=== PATIENT | male | born 1965 | race African-American/Black ===

== ENCOUNTER 2018-02-15 15:05 | Inpatient (IN) | payer OTHER ==
[2018-02-15 16:32] VITALS: BMI 24.2
--- NOTE | 2018-02-15 21:07 | HP ---
COWS - Scale Resting Pulse: 0= [place] 80 or Below Sweatin=Flushed/Facial Moisture Restless Observation: 0= Sits Still Pupil Size: 1= Pupils >than Normal Bone or Joint Aches: 4=Acute Joint/Muscle Pain Runny Nose/ Eye Tearin= None GI Upset > 30mins: 0= None Tremor Observation: 2= Slight Tremor Visible Yawning Observation: 0= None Anxiety or Irritability: 4=Extreme Anxiety Goose Flesh Skin: 0=Smooth Skin COWS Score: 13 CIWA Score - CIWA Score Nausea/Vomitin Muscle Tremors: 3 Anxiety: 2 Agitation: 3 Paroxysmal Sweats: 1-Minimal Palms Moist Orientation: 0-Oriented Tacttile Disturbances: 0-None Auditory Disturbances: 0-None Visual Disturbances: 0-None Headache: 3-Moderate CIWA-Ar Total Score: 15 Admission ROS S - HPI Chief Complaint: Heroin and alcohol withdrawal symptoms Allergies/Adverse Reactions: Allergies Allergy/AdvReac Type Severity Reaction Status Date / Time No Known Allergies Allergy Verified 02/15/18 19:38 History of Present Illness: 52 years old male with a long history of heroin and alcohol withdrawal symptoms is seeking admission to detox. Patientwas in detox 2 years ago at [facility] and reports 2 years of sobriety. Patient has a medical history of Hypertension, depression and anxiety. He denies suicide attempt and suicidal ideation at this time. Patient is on methadone 90mg tablet oral at [facility]ic. LDM is 02/15/2018. Dose is yet to be confirmed by the nurse. Exam Limitations: No Limitations - Ebola screening Have you traveled outside of the country in the last 21 days: No Have you had contact with anyone from an Ebola affected area: No Have you been sick,other than usual withdrawal symptoms: No Do you have a fever: No - Review of Systems Constitutional: Malaise, Night Sweats, Changes in sleep, Weakness EENT: reports: No Symptoms Reported Respiratory: reports: No Symptoms reported Cardiac: reports: No Symptoms Reported GI: reports: Diarrhea (x 2), Nausea, Poor Appetite, Poor Fluid Intake, Abdominal cramping : reports: No Symptoms Reported Musculoskeletal: reports: No Symptoms Reported Integumentary: reports: Dryness, Flushing Neuro: reports: Headache, Tingling, Tremors Endocrine: reports: No Symptoms Reported Hematology: reports: No Symptoms Reported Psychiatric: reports: Orientated x3, Anxious, Disorientated Other Systems: Reviewed and Negative Patient History - Patient Medical History Hx Anemia: No Hx Asthma: No Hx Chronic Obstructive Pulmonary Disease (COPD): No Hx Cancer: No Hx Cardiac Disorders: No Hx Congestive Heart Failure: No Hx Hypertension: Yes (Not on medication) Hx Hypercholesterolemia: No Hx Pacemaker: No HX Cerebrovascular Accident: No Hx Seizures: No Hx Dementia: No Hx Diabetes: No Hx Gastrointestinal Disorders: No Hx Liver Disease: No Hx Genitourinary Disorders: No Hx Sexually Transmitted Disorders: No Hx Renal Disease (ESRD): No Hx Thyroid Disease: No Hx Human Immunodeficiency Virus (HIV): No (Negative 2017) Hx Hepatitis C: No Hx Depression: Yes (Not on medication) Hx Suicide Attempt: No (Denies suicide attempt and suicidal ideation at this time) Hx Bipolar Disorder: No Hx Schizophrenia: No Other Medical History: Anxiety- Not on medication - Patient Surgical History Past Surgical History: No Hx Neurologic Surgery: No Hx Cataract Extraction: No Hx Cardiac Surgery: No Hx Lung Surgery: No Hx Abdominal Surgery: No Hx Appendectomy: No Hx Cholecystectomy: No Hx Genitourinary Surgery: No Hx Section: No Hx Orthopedic Surgery: No Anesthesia Reaction: No - PPD History Previous Implant?: Yes Documented Results: Negative w/o proof Implanted On Prior [facility] Admission?: Yes Date: 02/01/16 Results: 0 MM PPD to be Administered?: Yes - Reproductive History Patient is a Female of Child Bearing Age (11 -55 yrs old): No (Male) - Smoking Cessation Smoking history: Current every day smoker Have you smoked in the past 12 months: Yes Aproximately how many cigarettes per day: 20 Hx Chewing Tobacco Use: No Initiated information on smoking cessation: Yes 'Breaking Loose' booklet given: 02/15/18 - Substance & Tx. History Hx Alcohol Use: Yes Hx Substance Use: Yes Substance Use Type: Alcohol, Cocaine, Opiates Hx Substance Use Treatment: Yes ([facility] 2015) - Substances Abused Alcohol Route: Oral Frequency: Daily Amount used: 1 PINT Age of first use: 14 Date of Last Use: 02/15/18 Crack Route: Smoking Frequency: Daily Amount used: 8 BAGS Age of first use: 23 Date of Last Use: 02/15/18 Heroin Route: SNIFF Frequency: Daily Amount used: 2-3 BAGS Age of first use: 26 Date of Last Use: 02/15/18 Family Disease History - Family Disease History Family History: Denies Admission Physical Exam [facility] - Vital Signs Vital Signs: Vital Signs - 24 hr 02/15/18 16:29 Temperature 97.5 F L Pulse Rate 75 Respiratory 20 Rate Blood Pressure 138/90 - Physical General Appearance: Yes: Moderate Distress, Irritable, Sweating, Anxious HEENTM: Yes: EOMI, Normal ENT Inspection, Normocephalic, Normal Voice, MARINE, Pharynx Normal Respiratory: Yes: Lungs Clear, Normal Breath Sounds, No Respiratory Distress Neck: Yes: Thyroid enlarged Breast: Yes: Breast Exam Deferred Cardiology: Yes: Regular Rhythm, Regular Rate, S1, S2 Abdominal: Yes: Normal Bowel Sounds, Soft Genitourinary: Yes: Within Normal Limits Back: Yes: Normal Inspection Musculoskeletal: Yes: Within Normal Limits Extremities: Yes: Tremors Neurological: Yes: Alert, Normal Mood/Affect Integumentary: Yes: Dry - Diagnostic (1) Anxiety Current Visit: Yes Status: Chronic (2) Depression Current Visit: Yes Status: Chronic Qualifiers: Depression Type: unspecified Qualified Code(s): F32.9 - Major depressive disorder, single episode, unspecified (3) Alcohol dependence with uncomplicated withdrawal Current Visit: Yes Status: Chronic (4) Cocaine dependence Current Visit: Yes Status: Chronic Qualifiers: Substance use status: uncomplicated Qualified Code(s): F14.20 - Cocaine dependence, uncomplicated (5) Nicotine dependence Current Visit: Yes Status: Chronic Qualifiers: Nicotine product type: cigarettes Substance use status: uncomplicated Qualified Code(s): F17.210 - Nicotine dependence, cigarettes, uncomplicated (6) Opioid dependence with withdrawal Current Visit: Yes Status: Chronic Cleared for Admission [facility] - Detox or Rehab [facility] Level of Care: Medically Managed Detox Regimen/Protocol: Librium [facility] Breath Alcohol Content Breath Alcohol Content: 0 Urine Drug Screen - Results Drug Screen Negative: No Urine Drug Screen Results: SIVA-Cocaine, OPI-Opiates, BZO-Benzodiazepines, MTD- Methadone
[2018-02-15] MEDS ORDERED: P-EPHED 60MG/TRIPROLIDI 2.5MG TABLET PO PRN (21:15)
[2018-02-15] MEDS ORDERED: MAGNESIUM CITRATE 300 ML BOTTLE PO PRN (21:15)
[2018-02-15] MEDS ORDERED: IBUPROFEN 400 MG TABLET (FP) PO PRN (21:15)
[2018-02-15] MEDS ORDERED: ACETAMINOPHEN 325 MG TABLET (FP) PO PRN (21:15)
[2018-02-15] MEDS ORDERED: guaiFENesin/D-METHORPHAN HB 10 ML UNIT-DOSE CUPS PO PRN (21:15)
[2018-02-15] MEDS ORDERED: MENTHOL/PHENOL 1 EACH UD MM PRN (21:15)
[2018-02-15] MEDS ORDERED: MAGNESIUM HYDROX 2400MG/30ML ORAL SUSPENSION 30 ML CUP PO PRN (21:15)
[2018-02-15] MEDS ORDERED: chlordiazePOXIDE HCL 25 MG CAPSULE PO PRN (21:15)
[2018-02-15] MEDS ORDERED: MAG HYDROX/AL HYDROX/SIMETH 30 ML UNIT-DOSE CUP PO PRN (21:15)
[2018-02-15] MEDS ORDERED: LOPERAMIDE HCL 2 MG CAPSULE PO PRN (21:15)
[2018-02-15] MEDS ORDERED: MELATONIN 5 MG TABLETS PO PRN (22:00)
[2018-02-15] MEDS: chlordiazePOXIDE HCL 25 MG CAPSULE PO SCH (22:30)
[2018-02-15] MEDS: THIAMINE HCL 100 MG TABLET (FP) PO SCH (22:30)
[2018-02-16 01:08] LABS: URINE APPEARANCE CLEAR; URINE BILIRUBIN NEGATIVE (<2.0 mg/dL); URINE BLOOD NEGATIVE (NEGATIVE); URINE COLOR YELLOW; URINE GLUCOSE (UA) NEGATIVE (NEGATIVE); URINE KETONE NEGATIVE (NEGATIVE); URINE LEUK ESTERASE NEGATIVE (NEGATIVE); URINE NITRITE NEGATIVE (NEGATIVE); URINE PROTEIN NEGATIVE (NEGATIVE)
[2018-02-16] MEDS: chlordiazePOXIDE HCL 25 MG CAPSULE PO SCH ×4 (05:34→22:25)
[2018-02-16] MEDS ORDERED: METHADONE HCL 10 MG TABLET PO SCH (09:00)
--- NOTE | 2018-02-16 09:14 | CONSULT ---
[facility] Psychiatric Consult - Data Date of interview: 02/16/18 Admission source: [facility] Identifying data: Patient is a 52 year old single male, father of one, unemployed, homeless, and not receiving financial assistance. This is one of multiple admissions for patient. Pt. admitted to for alcohol, cocaine, and opiate dependence. Substance Abuse History: - Smoking Cessation. Smoking history: Current every day smoker. Have you smoked in the past 12 months: Yes. Aproximately how many cigarettes per day: 20. Hx Chewing Tobacco Use: No. Initiated information on smoking cessation: Yes. 'Breaking Loose' booklet given: 02/15/18. - Substance & Tx. History. Hx Alcohol Use: Yes. Hx Substance Use: Yes. Substance Use Type : Alcohol, Cocaine, Opiates. Hx Substance Use Treatment: Yes ([facility] 2015). - Substances Abused. Alcohol. Route: Oral. Frequency: Daily. Amount used: 1 PINT. Age of first use: 14. Date of Last Use: 02/15/18. Crack. Route: Smoking. Frequency: Daily. Amount used: 8 BAGS. Age of first use: 23. Date of Last Use: 02/15/18. Heroin. Route: SNIFF. Frequency: Daily. Amount used: 2-3 BAGS. Age of first use: 26. Date of Last Use: 02/15/18 Medical History: hypertension. Psychiatric History: Patient denies h/o psychiatric hospitalizations, outpatient care, and suicide attempt. Mental Status Exam - Mental Status Exam Alert and Oriented to: Time, Place, Person Cognitive Function: Good Patient Appearance: Unkempt Mood: Withdrawn Affect: Mood Congruent Patient Behavior: Fatigued, Guarded Speech Pattern: Slurred Voice Loudness: Moderately Soft/Quiet Thought Process: Goal Oriented Hallucinations: Denies Suicidal Ideation: Denies Homicidal Ideation: Denies Insight/Judgement: Poor Sleep: Fair Appetite: Fair Muscle strength/Tone: Normal Gait/Station: Other (Did not observe patient's gait.) Psychiatric Findings - Problem List ([place] 1, 2,3) (1) Alcohol dependence with uncomplicated withdrawal Current Visit: Yes Status: Acute (2) Cocaine dependence Current Visit: Yes Status: Chronic Qualifiers: Substance use status: uncomplicated Qualified Code(s): F14.20 - Cocaine dependence, uncomplicated (3) Nicotine dependence Current Visit: Yes Status: Chronic Qualifiers: Nicotine product type: cigarettes Substance use status: uncomplicated Qualified Code(s): F17.210 - Nicotine dependence, cigarettes, uncomplicated (4) Opioid dependence with withdrawal Current Visit: Yes Status: Acute (5) Substance induced mood disorder Current Visit: Yes Status: Acute - Initial Treatment Plan Initial Treatment Plan: Psychoeducation provided. Detoxification provided. Observation.
[2018-02-16] MEDS ORDERED: METHADONE HCL 10 MG TABLET ONE (09:56)
[2018-02-16] MEDS ORDERED: METHADONE HCL 40 MG DISPERSABLE TABLET ONE (09:56)
[2018-02-16 10:07] LABS: HEMATOCRIT 35.4 % (35.4-49); HEMOGLOBIN 11.8 GM/dL (11.7-16.9); MCH 27.8 pg (25.7-33.7); MCHC 33.4 g/dl (32.0-35.9); MEAN CELL VOLUME 83.1 fl (80-96); MEAN PLT VOLUME 9.4 fl (7.5-11.1); PLATELET COUNT 231 K/MM3 (134-434); RBC 4.26 M/mm3 (4.00-5.60); RDW 16.1 % (11.9-15.9); WHITE BLOOD COUNT 3.8 K/mm3 (4.0-10.0)
[2018-02-16] MEDS: METHADONE 80 MG, METHADONE 10 MG PO SCH (10:23)
[2018-02-16] MEDS: PRENATAL VITAMINS W/ FOLIC ACID TABLET (FP) PO SCH (10:23)
[2018-02-16 10:24] LABS: BLOOD UREA NITROGEN 15 mg/dL (7-18)
[2018-02-16] MEDS: NICOTINE POLACRILEX 2 MG GUM BUC PRN (10:24)
[2018-02-16] MEDS: NICOTINE 14 MG/24 HOURS TOPICAL PATCH TD SCH (10:24)
[2018-02-16 10:43] LABS: ALBUMIN 2.9 g/dl (3.4-5.0); ALK PHOS 65 U/L (45-117); ANION GAP 5 (8-16); BILIRUBIN,TOTAL 0.2 mg/dL (0.2-1.0); CALCIUM 7.9 mg/dL (8.5-10.1); CHLORIDE 106 mmol/L (98-107); CO2 30 mmol/L (21-32); CREATININE 0.9 mg/dL (0.7-1.3); GLUCOSE,RANDOM 77 mg/dL (74-106); POTASSIUM 4.1 mmol/L (3.5-5.1); SGOT/AST 20 U/L (15-37); SGPT/ALT 22 U/L (12-78); SODIUM 141 mmol/L (136-145); TOT PROT 6.2 g/dl (6.4-8.2)
--- NOTE | 2018-02-16 12:18 | PN ---
[facility] CIWA - CIWA Score Nausea/Vomitin-No Nausea/No Vomiting Muscle Tremors: None Anxiety: 4-Mod. Anxious/Guarded Agitation: 3 Paroxysmal Sweats: 3 Orientation: 2-Disoriented Date<2 days Tacttile Disturbances: 2-Mild Itch/Numbness/Burn Auditory Disturbances: 3-Moderate Harsh/Frighten Visual Disturbances: 0-None Headache: 0-None Present CIWA-Ar Total Score: 17 BHS COWS - Scale Resting Pulse: 0= [place] 80 or Below Sweatin= Chills/Flushing Restless Observation: 1= Difficult to Sit Still Pupil Size: 0= Normal to Room Light Bone or Joint Aches: 0= None Runny Nose/ Eye Tearin= Runny Nose/Eyes GI Upset > 30mins: 0= None Tremor Observation of Outstretched Hands: 0= None Yawning Observation: 2= >3x During Session Anxiety or Irritability: 2=Irritable/Anxious Goose Flesh Skin: 3=Piloerection COWS Score: 11 S Progress Note (SOAP) Subjective: Sweating, Anxious, Interrupted Sleep, Fatigue. Objective: PATIENT A & O X 2 (UNCERTAIN ABOUT CURRENT DAY / DATE). NO ACUTE DISTRESS. PATIENT DENIES CHEST PAIN. PATIENT DENIES ANY KNOWN HISTORY OF CARDIAC DISEASE OR PREVIOUS ECG ABNORMALITY. 02/16/18 12:19 Vital Signs Temperature 96.8 F L 02/16/18 09:35 Pulse Rate 73 02/16/18 09:35 Respiratory Rate 18 02/16/18 09:35 Blood Pressure 132/76 02/16/18 09:35 O2 Sat by Pulse Oximetry (%) Laboratory Tests 02/15/18 02/16/18 02/16/18 22:28 07:00 07:00 WBC 3.8 L RBC 4.26 Hgb 11.8 Hct 35.4 MCV 83.1 MCH 27.8 MCHC 33.4 RDW 16.1 H Plt Count 231 MPV 9.4 Sodium 141 Potassium 4.1 Chloride 106 Carbon Dioxide 30 Anion Gap 5 L BUN 15 D Creatinine 0.9 Creat Clearance w eGFR > 60 Random Glucose 77 D Calcium 7.9 L Total Bilirubin 0.2 AST 20 D ALT 22 D Alkaline Phosphatase 65 Total Protein 6.2 L Albumin 2.9 L Urine Color Yellow Urine Appearance Clear Urine pH 7.0 D Ur Specific [place] 1.023 Urine Protein Negative Urine Glucose (UA) Negative Urine Ketones Negative Urine Blood Negative Urine Nitrite Negative Urine Bilirubin Negative Urine Urobilinogen 2.0 Ur Leukocyte Esterase Negative LABS NOTED. RPR RESULT PENDING. 02/16/18 12:21 02/16/18 12:21 Assessment: 02/16/18 12:20 WITHDRAWAL SYMPTOMS. Plan: CONTINUE DETOX.
--- NOTE | 2018-02-16 13:33 | EKG ---
Test Reason : Blood Pressure : / mmHG Vent. Rate : 053 BPM Atrial Rate : 053 BPM P-R Int : 154 ms QRS Dur : 072 ms QT Int : 428 ms P-R-T Axes : 027 -54 030 degrees QTc Int : 401 ms SINUS BRADYCARDIA LEFT AXIS DEVIATION ABNORMAL ECG WHEN COMPARED WITH ECG OF 15-FEB-2018 22:41, NO SIGNIFICANT CHANGE WAS FOUND Confirmed by ABUNDIO CASTELLANOS MD ([id number]) on 02/16/2018 1:33:23 PM Referred By: Confirmed By:ABUNDIO CASTELLANOS MD
--- NOTE | 2018-02-16 13:34 | EKG ---
Test Reason : Blood Pressure : / mmHG Vent. Rate : 051 BPM Atrial Rate : 051 BPM P-R Int : 152 ms QRS Dur : 080 ms QT Int : 464 ms P-R-T Axes : 047 -55 017 degrees QTc Int : 427 ms SINUS BRADYCARDIA LEFT AXIS DEVIATION ABNORMAL ECG NO PREVIOUS ECGS AVAILABLE Confirmed by ABUNDIO CASTELLANOS MD ([id number]) on 02/16/2018 1:34:10 PM Referred By: Confirmed By:ABUNDIO CASTELLANOS MD
[2018-02-16] MEDS: THIAMINE HCL 100 MG TABLET (FP) PO SCH (22:25)
[2018-02-17] MEDS ORDERED: METHADONE HCL 10 MG TABLET ONE (04:34)
[2018-02-17] MEDS ORDERED: METHADONE HCL 40 MG DISPERSABLE TABLET ONE (04:35)
[2018-02-17] MEDS: METHADONE 80 MG, METHADONE 10 MG PO SCH (06:31)
[2018-02-17] MEDS: chlordiazePOXIDE HCL 25 MG CAPSULE PO SCH ×3 (06:31→17:41)
[2018-02-17] MEDS: NICOTINE 14 MG/24 HOURS TOPICAL PATCH TD SCH (10:18)
[2018-02-17] MEDS: NICOTINE POLACRILEX 2 MG GUM BUC PRN (10:18)
[2018-02-17] MEDS: PRENATAL VITAMINS W/ FOLIC ACID TABLET (FP) PO SCH (10:18)
--- NOTE | 2018-02-17 12:30 | PN ---
[facility] CIWA - CIWA Score Nausea/Vomitin-No Nausea/No Vomiting Muscle Tremors: 3 Anxiety: 0-No Anxiety, at Ease Agitation: 2 Paroxysmal Sweats: 3 Orientation: 0-Oriented Tacttile Disturbances: 2-Mild Itch/Numbness/Burn Auditory Disturbances: 2-Mild Harshness/Frighten Visual Disturbances: 2-Mild Sensitivity Headache: 0-None Present CIWA-Ar Total Score: 14 BHS COWS - Scale Resting Pulse: 0= [place] 80 or Below Sweatin= Chills/Flushing Restless Observation: 1= Difficult to Sit Still Pupil Size: 0= Normal to Room Light Bone or Joint Aches: 0= None Runny Nose/ Eye Tearin= Runny Nose/Eyes GI Upset > 30mins: 2= Nausea/Diarrhea Tremor Observation of Outstretched Hands: 2= Slight Tremor Visible Yawning Observation: 1= 1-2x During Session Anxiety or Irritability: 2=Irritable/Anxious Goose Flesh Skin: 3=Piloerection COWS Score: 14 S Progress Note (SOAP) Subjective: Tremors, Sweating, H/A, Stomach Cramping, Diarrhea. Objective: PATIENT A & O X 3, OBSERVED AMBULATING ON UNIT. NO ACUTE DISTRESS. 02/17/18 12:28 Vital Signs Temperature 96.4 F L 02/17/18 09:04 Pulse Rate 68 02/17/18 09:04 Respiratory Rate 18 02/17/18 09:04 Blood Pressure 125/81 02/17/18 09:04 O2 Sat by Pulse Oximetry (%) Laboratory Tests 02/15/18 02/16/18 02/16/18 22:28 07:00 07:00 WBC 3.8 L RBC 4.26 Hgb 11.8 Hct 35.4 MCV 83.1 MCH 27.8 MCHC 33.4 RDW 16.1 H Plt Count 231 MPV 9.4 Sodium 141 Potassium 4.1 Chloride 106 Carbon Dioxide 30 Anion Gap 5 L BUN 15 D Creatinine 0.9 Creat Clearance w eGFR > 60 Random Glucose 77 D Calcium 7.9 L Total Bilirubin 0.2 AST 20 D ALT 22 D Alkaline Phosphatase 65 Total Protein 6.2 L Albumin 2.9 L Urine Color Yellow Urine Appearance Clear Urine pH 7.0 D Ur Specific [place] 1.023 Urine Protein Negative Urine Glucose (UA) Negative Urine Ketones Negative Urine Blood Negative Urine Nitrite Negative Urine Bilirubin Negative Urine Urobilinogen 2.0 Ur Leukocyte Esterase Negative RPR Titer 02/16/18 07:00 WBC RBC Hgb Hct MCV MCH MCHC RDW Plt Count MPV Sodium Potassium Chloride Carbon Dioxide Anion Gap BUN Creatinine Creat Clearance w eGFR Random Glucose Calcium Total Bilirubin AST ALT Alkaline Phosphatase Total Protein Albumin Urine Color Urine Appearance Urine pH Ur Specific [place] Urine Protein Urine Glucose (UA) Urine Ketones Urine Blood Urine Nitrite Urine Bilirubin Urine Urobilinogen Ur Leukocyte Esterase RPR Titer Nonreactive LABS NOTED. Assessment: 02/17/18 12:29 WITHDRAWAL SYMPTOMS. Plan: CONTINUE DETOX.
[2018-02-17] MEDS: THIAMINE HCL 100 MG TABLET (FP) PO SCH (22:24)
[2018-02-17] MEDS: chlordiazePOXIDE 5 MG CAPSULE PO SCH (22:24)
[2018-02-18] MEDS ORDERED: METHADONE HCL 40 MG DISPERSABLE TABLET ONE (03:57)
[2018-02-18] MEDS ORDERED: METHADONE HCL 10 MG TABLET ONE (03:57)
[2018-02-18] MEDS: chlordiazePOXIDE 5 MG CAPSULE PO SCH ×3 (05:27→17:18)
[2018-02-18] MEDS: METHADONE 80 MG, METHADONE 10 MG PO SCH (05:27)
[2018-02-18] MEDS: NICOTINE 14 MG/24 HOURS TOPICAL PATCH TD SCH (10:11)
[2018-02-18] MEDS: NICOTINE POLACRILEX 2 MG GUM BUC PRN (10:11)
[2018-02-18] MEDS: PRENATAL VITAMINS W/ FOLIC ACID TABLET (FP) PO SCH (10:11)
--- NOTE | 2018-02-18 14:33 | PN ---
BHS Progress Note (SOAP) Subjective: Sweating, H/A, Anxious, Body Aches, Diarrhea, Tremors,. Objective: PATIENT A & O X 3, OBSERVED AMBULATING ON UNIT. NO ACUTE DISTRESS. 02/18/18 14:29 Vital Signs Temperature 97.5 F L 02/18/18 13:53 Pulse Rate 60 02/18/18 13:53 Respiratory Rate 16 02/18/18 13:53 Blood Pressure 129/63 02/18/18 13:53 O2 Sat by Pulse Oximetry (%) Laboratory Tests 02/15/18 02/16/18 02/16/18 22:28 07:00 07:00 WBC 3.8 L RBC 4.26 Hgb 11.8 Hct 35.4 MCV 83.1 MCH 27.8 MCHC 33.4 RDW 16.1 H Plt Count 231 MPV 9.4 Sodium 141 Potassium 4.1 Chloride 106 Carbon Dioxide 30 Anion Gap 5 L BUN 15 D Creatinine 0.9 Creat Clearance w eGFR > 60 Random Glucose 77 D Calcium 7.9 L Total Bilirubin 0.2 AST 20 D ALT 22 D Alkaline Phosphatase 65 Total Protein 6.2 L Albumin 2.9 L Urine Color Yellow Urine Appearance Clear Urine pH 7.0 D Ur Specific [place] 1.023 Urine Protein Negative Urine Glucose (UA) Negative Urine Ketones Negative Urine Blood Negative Urine Nitrite Negative Urine Bilirubin Negative Urine Urobilinogen 2.0 Ur Leukocyte Esterase Negative RPR Titer 02/16/18 07:00 WBC RBC Hgb Hct MCV MCH MCHC RDW Plt Count MPV Sodium Potassium Chloride Carbon Dioxide Anion Gap BUN Creatinine Creat Clearance w eGFR Random Glucose Calcium Total Bilirubin AST ALT Alkaline Phosphatase Total Protein Albumin Urine Color Urine Appearance Urine pH Ur Specific [place] Urine Protein Urine Glucose (UA) Urine Ketones Urine Blood Urine Nitrite Urine Bilirubin Urine Urobilinogen Ur Leukocyte Esterase RPR Titer Nonreactive LABS NOTED. Assessment: 02/18/18 14:30 WITHDRAWAL SYMPTOMS. Plan: CONTINUE DETOX. INCREASE DAILY PO FLUID INTAKE. PRN IMMODIUM FOR DIARRHEA. PATIENT SCHEDULED FOR D/C TOMORROW.
--- NOTE | 2018-02-18 15:19 | PN ---
Psychiatric Progress Note Vital Signs: Vital Signs Period Temp Pulse Resp BP Sys/Ashley Pulse Ox Last 24 Hr 97.0 F-98.5 F 60-78 16-18 105-129/60-71 Date of Session: 02/18/18 Chief Complaint:: None offered. HPI: Patient is approached by this typewriter repairer for psychiatric follow up (as requested by medical nurse practitioner).Mr Spencer declines interview." I am fine.I have no issue to discuss with a psychiatrist." Examination waived.Nursing stafff is aware. Current Medications: Active Medications Generic Name Dose Route Start Last Admin Trade Name Freq PRN Reason Stop Dose Admin Acetaminophen 650 mg 02/15/18 21:15 Tylenol - PO Q4H PRN FEVER Al Hydroxide/Mg Hydroxide 30 ml 02/15/18 21:15 Mylanta Oral Suspension - PO Q6H PRN DYSPEPSIA Chlordiazepoxide HCl 15 mg 02/17/18 23:00 02/18/18 10:11 Librium - PO 02/18/18 17:01 15 mg [id number] EPIFANIO Administration Chlordiazepoxide HCl 25 mg 02/15/18 21:15 Librium - PO 02/18/18 21:14 Q4H PRN WITHDRAWAL(CONT SUBST) Chlordiazepoxide HCl 10 mg 02/18/18 23:00 Librium - PO 02/19/18 17:01 [id number] EPIFANIO Eucalyptus/Menthol/Phenol/Sorbitol 1 each 02/15/18 21:15 Cepastat Lozenge - MM Q4H PRN SORE THROAT Guaifenesin 10 ml 02/15/18 21:15 Robitussin Dm - PO Q6H PRN COUGH Ibuprofen 400 mg 02/15/18 21:15 Motrin - PO Q6H PRN PAIN LEVEL 4-6 Loperamide HCl 4 mg 02/15/18 21:15 Imodium - PO Q6H PRN DIARRHEA Magnesium Citrate 300 ml 02/15/18 21:15 Citroma - PO Q48H PRN CONSTIPATION Magnesium Hydroxide 30 ml 02/15/18 21:15 Milk Of Magnesia - PO DAILY PRN CONSTIPATION Melatonin 5 mg 02/15/18 22:00 Melatonin PO HS PRN INSOMNIA Methadone HCl 80 mg/ Methadone 90 mg 02/16/18 09:30 02/18/18 05:27 HCl 10 mg PO 02/23/18 09:29 90 mg DAILY@0600 EPIFANIO Administration Nicotine 14 mg 02/16/18 10:00 02/18/18 10:11 Nicoderm Patch - TD Not Given DAILY EPIFANIO Nicotine Polacrilex 2 mg 02/15/18 21:15 02/18/18 10:11 Nicorette Gum - BUC 2 mg Q2H PRN Administration NICOTINE REPLACEMENT RX Multivit/Folic Acid/Iron 1 tab 02/16/18 10:00 02/18/18 10:11 Vitamins (Sjr) - PO 1 tab DAILY EPIFANIO Administration Pseudoephedrine/Triprolidine 1 combo 02/15/18 21:15 Actifed - PO TID PRN NASAL CONGESTION Thiamine HCl 100 mg 02/15/18 22:00 02/17/18 22:24 Vitamin B1 - PO 100 mg HS EPIFANIO Administration
[2018-02-18] MEDS: chlordiazePOXIDE HCL 10 MG CAPSULE PO SCH (22:10)
[2018-02-18] MEDS: THIAMINE HCL 100 MG TABLET (FP) PO SCH (22:10)
[2018-02-19] MEDS ORDERED: METHADONE HCL 40 MG DISPERSABLE TABLET ONE (04:52)
[2018-02-19] MEDS ORDERED: METHADONE HCL 10 MG TABLET ONE (04:52)
[2018-02-19] MEDS: chlordiazePOXIDE HCL 10 MG CAPSULE PO SCH (05:20)
[2018-02-19] MEDS: METHADONE 80 MG, METHADONE 10 MG PO SCH (05:20)
[2018-02-19] MEDS: NICOTINE 14 MG/24 HOURS TOPICAL PATCH TD SCH (09:19)
[2018-02-19] MEDS: PRENATAL VITAMINS W/ FOLIC ACID TABLET (FP) PO SCH (09:19)
[2018-02-19 09:31] VITALS: BP 126/68; PULSE 84; TEMP 95.6
== END 2018-02-19 09:55 | disposition home or self-care (01) | DRG 773 ==
LOC: YASAS 15:05 → Y3N 20:33
PROVIDERS: ADMIT Internal Medicine; ATTEND Internal Medicine
PROC: HZ2ZZZZ Detoxification Services for Substance Abuse Treatment (ICD-10-PCS; principal; 2018-02-15)
DX: F11.23 Opioid dependence with withdrawal (principal); F10.230 Alcohol dependence with withdrawal, uncomplicated; F14.20 Cocaine dependence, uncomplicated; F17.210 Nicotine dependence, cigarettes, uncomplicated; F41.9 Anxiety disorder, unspecified; F32.9 Major depressive disorder, single episode, unspecified; F19.24 Other psychoactive substance dependence with psychoactive substance-induced mood disorder; I10 Essential (primary) hypertension
CPT/HCPCS: 36415; 80053; 81003; 85027; 86593; 93005; 93010

== ENCOUNTER 2019-07-09 13:47 | Inpatient (IN) | payer OTHER ==
[2019-07-09 14:44] VITALS: BMI 25.4
--- NOTE | 2019-07-09 16:01 | HP ---
COWS - Scale Resting Pulse: 0= [place] 80 or Below Sweatin= No chills or Flushing Restless Observation: 1= Difficult to Sit Still Pupil Size: 0= Normal to Room Light Bone or Joint Aches: 0= None Runny Nose/ Eye Tearin= None GI Upset > 30mins: 0= None Tremor Observation: 2= Slight Tremor Visible Yawning Observation: 1= 1-2x During Session Anxiety or Irritability: 1=Feels Anxious/Irritable CIWA Score Nausea/Vomitin-Mild Nausea/No Vomiting Muscle Tremors: 2 Anxiety: 3 Agitation: 3 Paroxysmal Sweats: No Perspiration Orientation: 1-Uncertain about Date Tacttile Disturbances: 2-Mild Itch/Numbness/Burn Auditory Disturbances: 0-None Visual Disturbances: 0-None Headache: 2-Mild CIWA-Ar Total Score: 14 - Admission Criteria OASAS Guidelines: Admission for Medically Managed Detox: Requires at least one of the followin. CIWA greater than 12 2. Seizures within the past 24 hours 3. Delirium tremens within the past 24 hours 4. Hallucinations within the past 24 hours 5. Acute intervention needed for co occurring medical disorder 6. Acute intervention needed for co occurring psychiatric disorder 7. Severe withdrawal that cannot be handled at a lower level of care (continued vomiting, continued diarrhea, abnormal vital signs) requiring intravenous medication and/or fluids 8. Admitting History and Physical - Smoking History Smoking history: Current every day smoker Have you smoked in the past 12 months: Yes Aproximately how many cigarettes per day: 20 - Alcohol/Substance Use Hx Alcohol Use: Yes Admission [facility] Chief Complaint: Detox from alcohol/heroin Allergies/Adverse Reactions: Allergies Allergy/AdvReac Type Severity Reaction Status Date / Time No Known Allergies Allergy Verified 07/09/19 14:36 History of Present Illness: 53 year old male with no significant medical history here for alcohol/heroin use. In a methadone program getting 50mg daily. Last dose today. Last here in 2018. No legal problems. Reports he was getting medication for L ear pain. Wants to do both detox and rehab. Alcohol: 18 cans of beer daily, last drink was yesterday; many years. Never had withdrawal seizures. Has had blackouts in the past. Normal withdrawal symptoms include being "hyper" and "tremulous". Wants to stop because hes getting tired of it. Heroin: 8-12 bags of heroin a day; sniffs, never injected; never ODd, has a narcan kit, never had seizure from withdrawal Methadone: 50mg daily from program, nothing off the street Cigarettes: 1 pack per day 25 years Surgery: No surgery Living Situation: lives with mom; mom is supportive of him; No children, no Work: former maintenance, construction - Ebola screening Have you traveled outside of the country in the last 21 days: No Have you had contact with anyone from an Ebola affected area: No Do you have a fever: No - Review of Systems Constitutional: Chills EENT: reports: Ear Pain (L sided ear pain) Respiratory: reports: No Symptoms reported Cardiac: reports: Lightheadedness GI: reports: No Symptoms Reported : reports: No Symptoms Reported Musculoskeletal: reports: No Symptoms Reported Integumentary: reports: No Symptoms Reported Neuro: reports: Headache Endocrine: reports: No Symptoms Reported Hematology: reports: No Symptoms Reported Psychiatric: reports: Judgement Intact, Mood/Affect Appropiate, Orientated x3 Patient History - Patient Medical History Hx Anemia: No Hx Asthma: No Hx Chronic Obstructive Pulmonary Disease (COPD): No Hx Cancer: No Hx Cardiac Disorders: No Hx Congestive Heart Failure: No Hx Hypertension: Yes (Not on medication) Hx Hypercholesterolemia: No Hx Pacemaker: No HX Cerebrovascular Accident: No Hx Seizures: No Hx Dementia: No Hx Diabetes: No Hx Gastrointestinal Disorders: No Hx Liver Disease: No Hx Genitourinary Disorders: No Hx Sexually Transmitted Disorders: No Hx Renal Disease (ESRD): No Hx Thyroid Disease: No Hx Human Immunodeficiency Virus (HIV): No (Negative 2018) Hx Hepatitis C: No Hx Depression: Yes (Not on medication) Hx Suicide Attempt: No (Denies suicide attempt and suicidal ideation at this time) Hx Bipolar Disorder: No Hx Schizophrenia: No - Patient Surgical History Past Surgical History: No Hx Neurologic Surgery: No Hx Cataract Extraction: No Hx Cardiac Surgery: No Hx Lung Surgery: No Hx Breast Surgery: No Hx Breast Biopsy: No Hx Abdominal Surgery: No Hx Appendectomy: No Hx Cholecystectomy: No Hx Genitourinary Surgery: No Hx Section: No Hx Orthopedic Surgery: No Anesthesia Reaction: No - PPD History Date: 02/17/18 Results: 0 MM - Smoking Cessation Smoking history: Current every day smoker Have you smoked in the past 12 months: Yes Aproximately how many cigarettes per day: 20 Cigars Per Day: 0 Hx Chewing Tobacco Use: No Initiated information on smoking cessation: Yes 'Breaking Loose' booklet given: 07/09/19 - Substances abused Alcohol Substance route: Oral Frequency: Daily Amount used: 45 8oz can of beer & 3 nips vodka Age of first use: 12 Date of last use: 07/08/19 Heroin Substance route: Inhalation Frequency: Daily Amount used: 2-3 bags Age of first use: 11 Date of last use: 07/09/19 Admission Physical Exam [facility] - Vital Signs Vital Signs: Vital Signs - 24 hr 07/09/19 14:30 Temperature 98.3 F Pulse Rate 70 Respiratory 20 Rate Blood Pressure 133/79 - Physical General Appearance: Yes: No Apparent Distress, Tremorous HEENTM: Yes: Hearing grossly Normal, Normal ENT Inspection, Normocephalic Respiratory: Yes: Chest Non-Tender, Normal Breath Sounds Cardiology: Yes: Regular Rhythm, Regular Rate Abdominal: Yes: Normal Bowel Sounds, Non Tender Musculoskeletal: Yes: full range of Motion, Gait Steady Extremities: Yes: Normal Capillary Refill, Normal Inspection, Normal Range of Motion Neurological: Yes: deputy city clerk II-XII NML intact, Fully Oriented, Motor Strength 5/5, Normal Mood/Affect, Normal Response Integumentary: Yes: Normal Color, Dry, Warm - Diagnostic (1) Alcohol dependence with uncomplicated withdrawal Current Visit: No Status: Acute (2) Opioid dependence with withdrawal Current Visit: No Status: Acute (3) Substance induced mood disorder Current Visit: No Status: Acute (4) Anxiety Current Visit: No Status: Chronic (5) Cocaine dependence Current Visit: No Status: Chronic Qualifiers: Substance use status: uncomplicated Qualified Code(s): F14.20 - Cocaine dependence, uncomplicated Cleared for Admission [facility] - Detox or Rehab [facility] Level of Care: Medically Supervised Breathalyzer - Breathalyzer Breathalyzer: 0 Urine Drug Screen - Test Device Lot number: [id number] Expiration date: 02/16/21 - Control Is test valid?: Yes - Results Drug screen NEGATIVE: No Urine drug screen results: FEN-Fentanyl, MOP-Opiates, MTD-Methadone Inpatient Rehab Admission - Rehab Decision to Admit Inpatient rehab admission?: No
--- NOTE | 2019-07-09 16:21 | PN ---
Teaching Attending Note Name of Resident: Madhu Yu ATTENDING PHYSICIAN STATEMENT I saw and evaluated the patient. I reviewed the resident's note and discussed the case with the resident. I agree with the resident's findings and plan as documented. SUBJECTIVE:53 yo with OUD, on methadone MAT, here for alcohol use- 12 beers/day. OBJECTIVE: Vital Signs - 24 hr 07/09/19 14:30 Temperature 98.3 F Pulse Rate 70 Respiratory 20 Rate Blood Pressure 133/79 alert and oriented ASSESSMENT AND PLAN: Alcohol use disorder- librium detox OUD- continue methadone
[2019-07-09] MEDS ORDERED: MAG HYDROX/AL HYDROX/SIMETH 30 ML UNIT-DOSE CUP PO PRN (16:23)
[2019-07-09] MEDS ORDERED: MENTHOL/PHENOL 1 EACH UD MM PRN (16:23)
[2019-07-09] MEDS ORDERED: ACETAMINOPHEN 325 MG TABLET (FP) PO PRN ×2 (16:23)
[2019-07-09] MEDS ORDERED: hydrOXYzine PAMOATE 25 MG CAPSULE (FP) PO PRN (16:23)
[2019-07-09] MEDS ORDERED: MELATONIN 5 MG TABLETS PO PRN (16:23)
[2019-07-09] MEDS ORDERED: METHOCARBAMOL 500 MG TABLET PO PRN (16:23)
[2019-07-09] MEDS ORDERED: MAGNESIUM CITRATE 300 ML BOTTLE PO PRN (16:23)
[2019-07-09] MEDS ORDERED: MAGNESIUM HYDROX 2400MG/30ML ORAL SUSPENSION 30 ML CUP PO PRN (16:23)
[2019-07-09] MEDS ORDERED: BISMUTH SUBSALICYLATE 524 MG/30 ML UD PO PRN (16:23)
[2019-07-09] MEDS ORDERED: IBUPROFEN 400 MG TABLET (FP) PO PRN (16:23)
[2019-07-09] MEDS ORDERED: chlordiazePOXIDE HCL 10 MG CAPSULE PO PRN (16:23)
[2019-07-09] MEDS: chlordiazePOXIDE HCL 25 MG CAPSULE PO SCH (21:30)
[2019-07-09] MEDS: THIAMINE HCL 100 MG TABLET (FP) PO SCH (22:10)
[2019-07-10] MEDS: chlordiazePOXIDE HCL 25 MG CAPSULE PO SCH ×3 (06:15→21:20)
[2019-07-10] MEDS ORDERED: METHADONE HCL 10 MG TABLET PO ONE (09:08)
[2019-07-10] MEDS ORDERED: METHADONE 40 MG, METHADONE 5 MG PO ONE (09:20)
[2019-07-10] MEDS ORDERED: METHADONE HCL 40 MG DISPERSABLE TABLET ONE (09:47)
[2019-07-10] MEDS ORDERED: METHADONE HCL 5 MG TABLET ONE (09:48)
[2019-07-10] MEDS: PRENATAL VITAMINS W/ FOLIC ACID TABLET (FP) PO SCH (10:27)
--- NOTE | 2019-07-10 11:38 | PN ---
S CIWA - CIWA Score Nausea/Vomitin-Mild Nausea/No Vomiting Muscle Tremors: 2 Anxiety: 2 Agitation: 2 Paroxysmal Sweats: No Perspiration Orientation: 0-Oriented Tacttile Disturbances: 1-Very Mild Itch/Numbness Auditory Disturbances: 0-None Visual Disturbances: 0-None Headache: 2-Mild CIWA-Ar Total Score: 10 BHS Progress Note (SOAP) Subjective: alert,irritable,anxious,interrupted sleep,pain in the body,history of earwax in right ear using ear drop Objective: 07/10/19 11:37 Vital Signs Temperature 98.2 F 07/10/19 09:39 Pulse Rate 71 07/10/19 09:39 Respiratory Rate 18 07/10/19 09:39 Blood Pressure 139/79 07/10/19 09:39 O2 Sat by Pulse Oximetry (%) 07/10/19 11:37 labs pending Assessment: 07/10/19 11:38 withdrawal symptom Plan: continue detox librium regimen,continue methadone maintenance 45 mgs po daily, debrox ear drop right
[2019-07-10 12:07] LABS: HEMATOCRIT 37.6 % (35.4-49); HEMOGLOBIN 12.4 GM/dL (11.7-16.9); MCH 27.9 pg (25.7-33.7); MCHC 32.8 g/dl (32.0-35.9); MEAN CELL VOLUME 85.1 fl (80-96); MEAN PLT VOLUME 9.4 fl (7.5-11.1); PLATELET COUNT 203 K/MM3 (134-434); RBC 4.42 M/mm3 (4.00-5.60); RDW 14.8 % (11.9-15.9); WHITE BLOOD COUNT 3.7 K/mm3 (4.0-10.0)
[2019-07-10 12:22] LABS: ALBUMIN 3.3 g/dl (3.4-5.0); BILIRUBIN,TOTAL 0.4 mg/dL (0.2-1); BLOOD UREA NITROGEN 12.6 mg/dL (7-18); CALCIUM 8.5 mg/dL (8.5-10.1); CREATININE 0.8 mg/dL (0.55-1.3); POTASSIUM 3.9 mmol/L (3.5-5.1); TOT PROT 6.6 g/dl (6.4-8.2)
[2019-07-10] MEDS: CARBAMIDE PEROXIDE 6.5% OTIC 15 ML BOTTLE AD SCH ×2 (13:55→22:47)
[2019-07-10] MEDS: THIAMINE HCL 100 MG TABLET (FP) PO SCH (22:47)
[2019-07-11] MEDS ORDERED: METHADONE HCL 40 MG DISPERSABLE TABLET ONE (04:57)
[2019-07-11] MEDS ORDERED: METHADONE HCL 5 MG TABLET ONE (04:58)
[2019-07-11] MEDS: chlordiazePOXIDE 5 MG CAPSULE PO SCH ×2 (05:47→13:54)
[2019-07-11] MEDS ORDERED: METHADONE HCL 40 MG DISPERSABLE TABLET PO SCH (06:00)
[2019-07-11] MEDS ORDERED: METHADONE 40 MG, METHADONE 5 MG PO SCH (06:00)
[2019-07-11] MEDS: CARBAMIDE PEROXIDE 6.5% OTIC 15 ML BOTTLE AD SCH (10:45)
[2019-07-11] MEDS: PRENATAL VITAMINS W/ FOLIC ACID TABLET (FP) PO SCH (10:45)
--- NOTE | 2019-07-11 11:59 | PN ---
S CIWA - CIWA Score Nausea/Vomitin-Mild Nausea/No Vomiting Muscle Tremors: 1-None Visible, but [place] Anxiety: 2 Agitation: 2 Paroxysmal Sweats: No Perspiration Orientation: 0-Oriented Tacttile Disturbances: 1-Very Mild Itch/Numbness Auditory Disturbances: 0-None Visual Disturbances: 0-None Headache: 2-Mild CIWA-Ar Total Score: 9 BHS Progress Note (SOAP) Subjective: alert,irritable,anxious,interrupted sleep,pain in the body Objective: 07/11/19 11:58 Vital Signs Temperature 97.5 F L 07/11/19 09:11 Pulse Rate 89 07/11/19 09:11 Respiratory Rate 20 07/11/19 09:11 Blood Pressure 122/60 07/11/19 09:11 O2 Sat by Pulse Oximetry (%) Laboratory Last Values WBC 3.7 K/mm3 (4.0-10.0) L 07/10/19 08:40 RBC 4.42 M/mm3 (4.00-5.60) 07/10/19 08:40 Hgb 12.4 GM/dL (11.7-16.9) 07/10/19 08:40 Hct 37.6 % (35.4-49) 07/10/19 08:40 MCV 85.1 fl (80-96) 07/10/19 08:40 MCH 27.9 pg (25.7-33.7) 07/10/19 08:40 MCHC 32.8 g/dl (32.0-35.9) 07/10/19 08:40 RDW 14.8 % (11.9-15.9) 07/10/19 08:40 Plt Count 203 K/MM3 (134-434) 07/10/19 08:40 MPV 9.4 fl (7.5-11.1) 07/10/19 08:40 Sodium 139 mmol/L (136-145) 07/10/19 08:40 Potassium 3.9 mmol/L (3.5-5.1) 07/10/19 08:40 Chloride 102 mmol/L (98-107) 07/10/19 08:40 Carbon Dioxide 31 mmol/L (21-32) 07/10/19 08:40 Anion Gap 6 MMOL/L (8-16) L 07/10/19 08:40 BUN 12.6 mg/dL (7-18) 07/10/19 08:40 Creatinine 0.8 mg/dL (0.55-1.3) 07/10/19 08:40 Est GFR (CKD-EPI)AfAm 117.38 07/10/19 08:40 Est GFR (CKD-EPI)NonAf 101.27 07/10/19 08:40 Random Glucose 79 mg/dL (74-106) 07/10/19 08:40 Calcium 8.5 mg/dL (8.5-10.1) 07/10/19 08:40 Total Bilirubin 0.4 mg/dL (0.2-1) 07/10/19 08:40 AST 17 U/L (15-37) 07/10/19 08:40 ALT 27 U/L (13-61) 07/10/19 08:40 Alkaline Phosphatase 66 U/L (45-117) 07/10/19 08:40 Total Protein 6.6 g/dl (6.4-8.2) 07/10/19 08:40 Albumin 3.3 g/dl (3.4-5.0) L 07/10/19 08:40 RPR Titer Nonreactive (NONREACTIVE) 07/10/19 08:40 Assessment: 07/11/19 11:59 withdrawal symptom Plan: continue detox librium regimen
[2019-07-11 14:09] VITALS: BP 124/62; PULSE 73; TEMP 98.1
[2019-07-12] MEDS ORDERED: chlordiazePOXIDE HCL 10 MG CAPSULE PO PRN
[2019-07-12] MEDS ORDERED: chlordiazePOXIDE HCL 10 MG CAPSULE PO SCH (05:00)
[2019-07-13] MEDS ORDERED: chlordiazePOXIDE HCL 10 MG CAPSULE PO ONE (05:00)
== END 2019-07-11 16:24 | disposition left against medical advice (07) | DRG 770 ==
LOC: YASAS 13:47 → Y6N 16:52
PROVIDERS: ADMIT Allergy & Immunology; ATTEND Allergy & Immunology
PROC: HZ2ZZZZ Detoxification Services for Substance Abuse Treatment (ICD-10-PCS; principal; 2019-07-09)
DX: F11.23 Opioid dependence with withdrawal (principal); F10.230 Alcohol dependence with withdrawal, uncomplicated; F17.210 Nicotine dependence, cigarettes, uncomplicated; F19.24 Other psychoactive substance dependence with psychoactive substance-induced mood disorder; F41.9 Anxiety disorder, unspecified
CPT/HCPCS: 36415; 80053; 85027; 86593

== ENCOUNTER 2019-10-16 17:27 | Inpatient (IN) | payer OTHER ==
[2019-10-16 18:42] VITALS: BMI 32.9
--- NOTE | 2019-10-16 20:13 | HP ---
CIWA Score Nausea/Vomitin Muscle Tremors: 2 Anxiety: 3 Agitation: 2 Paroxysmal Sweats: 2 Orientation: 0-Oriented Tacttile Disturbances: 0-None Auditory Disturbances: 0-None Visual Disturbances: 0-None Headache: 2-Mild CIWA-Ar Total Score: 13 - Admission Criteria OASAS Guidelines: Admission for Medically Managed Detox: Requires at least one of the followin. CIWA greater than 12 2. Seizures within the past 24 hours 3. Delirium tremens within the past 24 hours 4. Hallucinations within the past 24 hours 5. Acute intervention needed for co occurring medical disorder 6. Acute intervention needed for co occurring psychiatric disorder 7. Severe withdrawal that cannot be handled at a lower level of care (continued vomiting, continued diarrhea, abnormal vital signs) requiring intravenous medication and/or fluids 8. Admitting History and Physical - Admission Chief Complaint: "i'm here for alcohol detox". History of Present Illness: A 54year old male with history of alcohol, heroin, and cocaine use disorder who presents here for alcohol detox. Pt gets methadone 70mg po daily at [facility]MTP program. Last dose today, to be verified in AM. Pt was last detox here was on 07/09/19 to . Pt reports that several attempts to remain sober has failed and plans to go to rehab for continued management after completing detox. Pt's EKG is abnormal, denies any chest pain, palpitations, dizziness, or sob. Repeat EKG in AM. History Source: Patient Limitations to Obtaining History: No Limitations - Smoking History Smoking history: Current every day smoker Have you smoked in the past 12 months: Yes Aproximately how many cigarettes per day: 10 - Alcohol/Substance Use Hx Alcohol Use: Yes History of Substance Use: reports: Cocaine, Heroin - Social History Usual Living Arrangement: Yes: Alone, Other (Homeless) Do you think of yourself as: Straight/Heterosexual ADL: Independent History of Recent Travel: No Admission ROS [facility] Allergies/Adverse Reactions: Allergies Allergy/AdvReac Type Severity Reaction Status Date / Time No Known Allergies Allergy Verified 10/16/19 18:28 Exam Limitations: No Limitations - Ebola screening Have you traveled outside of the country in the last 21 days: No Have you had contact with anyone from an Ebola affected area: No Have you been sick,other than usual withdrawal symptoms: No Do you have a fever: No - Review of Systems Constitutional: Chills, Night Sweats EENT: reports: No Symptoms Reported Respiratory: reports: Cough Cardiac: reports: No Symptoms Reported GI: reports: Diarrhea, Nausea : reports: No Symptoms Reported Musculoskeletal: reports: No Symptoms Reported Integumentary: reports: No Symptoms Reported Neuro: reports: Headache, Tremors Endocrine: reports: No Symptoms Reported Hematology: reports: No Symptoms Reported Psychiatric: reports: Mood/Affect Appropiate, Anxious Other Systems: Reviewed and Negative Patient History - Patient Medical History Hx Anemia: No Hx Asthma: No Hx Chronic Obstructive Pulmonary Disease (COPD): No Hx Cancer: No Hx Cardiac Disorders: No Hx Congestive Heart Failure: No Hx Hypertension: No Hx Hypercholesterolemia: No Hx Pacemaker: No HX Cerebrovascular Accident: No Hx Seizures: No Hx Dementia: No Hx Diabetes: No Hx Gastrointestinal Disorders: No Hx Liver Disease: No Hx Genitourinary Disorders: No Hx Sexually Transmitted Disorders: No Hx Renal Disease (ESRD): No Hx Thyroid Disease: No Hx Human Immunodeficiency Virus (HIV): No (Negative 2018) Hx Hepatitis C: No Hx Depression: No Hx Suicide Attempt: No Hx Bipolar Disorder: No Hx Schizophrenia: No - Patient Surgical History Past Surgical History: No Hx Neurologic Surgery: No Hx Cataract Extraction: No Hx Cardiac Surgery: No Hx Lung Surgery: No Hx Breast Surgery: No Hx Breast Biopsy: No Hx Abdominal Surgery: No Hx Appendectomy: No Hx Cholecystectomy: No Hx Genitourinary Surgery: No Hx Section: No Hx Orthopedic Surgery: No Anesthesia Reaction: No - PPD History Previous Implant?: Yes Documented Results: Negative w/proof Date: 07/11/19 Results: 0 MM PPD to be Administered?: No - Smoking Cessation Smoking history: Current every day smoker Have you smoked in the past 12 months: Yes Aproximately how many cigarettes per day: 10 Cigars Per Day: 0 Hx Chewing Tobacco Use: No Initiated information on smoking cessation: Yes 'Breaking Loose' booklet given: 10/16/19 - Substance & Tx. History Hx Alcohol Use: Yes Hx Substance Use: Yes Substance Use Type: Alcohol, Cocaine, Heroin Hx Substance Use Treatment: Yes (On methadone 70mg po daily at [facility]) - Substances abused Alcohol Substance route: Oral Frequency: Daily Amount used: 4 cans of 16oz of beer and 1 pints of vodka Age of first use: 12 Date of last use: 10/15/19 Heroin Substance route: Inhalation Frequency: Daily Amount used: 2 to 3 bags Age of first use: 23 Date of last use: 10/16/19 Crack Substance route: Smoking Frequency: Daily Amount used: 10 bags Age of first use: 19 Date of last use: 10/16/19 Admission Physical Exam [facility] - Vital Signs Vital Signs: Vital Signs - 24 hr 10/16/19 10/16/19 18:28 18:50 Temperature 98.3 F Pulse Rate 69 69 Respiratory 16 16 Rate Blood Pressure 137/76 137/76 - Physical General Appearance: Yes: No Apparent Distress, Tremorous, Irritable, Sweating, Anxious HEENTM: Yes: Hearing grossly Normal, Normocephalic, MARINE, Tm's normal Respiratory: Yes: Chest Non-Tender, Lungs Clear, Normal Breath Sounds, No Respiratory Distress Neck: Yes: No masses,lesions,Nodules Breast: Yes: Within Normal Limits Cardiology: Yes: Regular Rhythm, Regular Rate, S1, S2 Abdominal: Yes: Normal Bowel Sounds, Non Tender, Soft Genitourinary: Yes: Within Normal Limits Back: Yes: Normal Inspection Extremities: Yes: Normal Capillary Refill, Tremors Neurological: Yes: Alert, Motor Strength 5/5, Normal Response Integumentary: Yes: Dry, Warm Lymphatic: Yes: Within Normal Limits Cleared for Admission [facility] - Detox or Rehab [facility] Level of Care: Medically Managed Detox Regimen/Protocol: Librium Claeared for Rehab Admission: No Breathalyzer - Breathalyzer Breathalyzer: 0 Urine Drug Screen - Test Device Lot number: [id number] Expiration date: 04/18/21 - Control Is test valid?: Yes - Results Drug screen NEGATIVE: No Urine drug screen results: SIVA-Cocaine, FEN-Fentanyl, MTD-Methadone, BZO- Benzodiazepines Inpatient Rehab Admission - Rehab Decision to Admit Inpatient rehab admission?: No
[2019-10-16] MEDS ORDERED: MAGNESIUM HYDROX 2400MG/30ML ORAL SUSPENSION 30 ML CUP PO PRN (20:26)
[2019-10-16] MEDS ORDERED: ACETAMINOPHEN 325 MG TABLET (FP) PO PRN ×2 (20:26)
[2019-10-16] MEDS ORDERED: BISMUTH SUBSALICYLATE 524 MG/30 ML UD PO PRN (20:26)
[2019-10-16] MEDS ORDERED: ONDANSETRON *ODT* 4 MG TABLET SL PRN (20:26)
[2019-10-16] MEDS ORDERED: METHOCARBAMOL 500 MG TABLET PO PRN (20:26)
[2019-10-16] MEDS ORDERED: MENTHOL/PHENOL 1 EACH UD MM PRN (20:26)
[2019-10-16] MEDS ORDERED: MAG HYDROX/AL HYDROX/SIMETH 30 ML UNIT-DOSE CUP PO PRN (20:26)
[2019-10-16] MEDS ORDERED: MAGNESIUM CITRATE 300 ML BOTTLE PO PRN (20:26)
[2019-10-16] MEDS ORDERED: IBUPROFEN 400 MG TABLET (FP) PO PRN (20:26)
[2019-10-16] MEDS ORDERED: hydrOXYzine PAMOATE 25 MG CAPSULE (FP) PO PRN (20:26)
[2019-10-16] MEDS ORDERED: chlordiazePOXIDE HCL 10 MG CAPSULE PO PRN (20:30)
[2019-10-16] MEDS: chlordiazePOXIDE HCL 25 MG CAPSULE PO SCH (22:15)
[2019-10-16] MEDS: MELATONIN 5 MG TABLETS PO PRN (22:15)
[2019-10-16] MEDS: THIAMINE HCL 100 MG TABLET (FP) PO SCH (22:15)
[2019-10-16] MEDS: guaiFENesin 200 MG/10 ML 10 ML UNIT-DOSE CUPS PO PRN (22:16)
[2019-10-17] MEDS: chlordiazePOXIDE HCL 25 MG CAPSULE PO SCH ×3 (06:14→21:09)
[2019-10-17] MEDS: AMOX TR/POT CLAV 875MG/125MG TABLETS (FP) PO SCH ×2 (07:30→17:02)
[2019-10-17] MEDS ORDERED: METHADONE HCL 10 MG TABLET PO ONE (08:26)
[2019-10-17] MEDS ORDERED: METHADONE 40 MG, METHADONE 30 MG PO ONE (08:35)
[2019-10-17] MEDS ORDERED: METHADONE HCL 10 MG TABLET ONE (08:51)
[2019-10-17] MEDS ORDERED: METHADONE HCL 40 MG DISPERSABLE TABLET ONE (08:51)
[2019-10-17] MEDS: NICOTINE 14 MG/24 HOURS TOPICAL PATCH TD SCH (09:55)
[2019-10-17] MEDS: PRENATAL VITAMINS W/ FOLIC ACID TABLET (FP) PO SCH (09:55)
[2019-10-17] MEDS: guaiFENesin 200 MG/10 ML 10 ML UNIT-DOSE CUPS PO PRN (09:59)
[2019-10-17] MEDS: NICOTINE POLACRILEX 2 MG GUM BUC PRN (09:59)
[2019-10-17 10:24] LABS: HEMATOCRIT 38.7 % (35.4-49); HEMOGLOBIN 12.8 GM/dL (11.7-16.9); MCH 27.8 pg (25.7-33.7); MEAN CELL VOLUME 84.1 fl (80-96); MEAN PLT VOLUME 9.6 fl (7.5-11.1); PLATELET COUNT 281 K/MM3 (134-434); RDW 15.9 % (11.9-15.9); WHITE BLOOD COUNT 3.4 K/mm3 (4.0-10.0)
[2019-10-17 10:42] LABS: ALBUMIN 3.3 g/dl (3.4-5.0); BILIRUBIN,TOTAL 0.6 mg/dL (0.2-1); BLOOD UREA NITROGEN 8.4 mg/dL (7-18); CALCIUM 8.7 mg/dL (8.5-10.1); POTASSIUM 4.2 mmol/L (3.5-5.1)
--- NOTE | 2019-10-17 11:56 | PN ---
S CIWA - CIWA Score Nausea/Vomitin-No Nausea/No Vomiting Muscle Tremors: 3 Anxiety: 2 Agitation: 3 Paroxysmal Sweats: 2 Orientation: 0-Oriented Tacttile Disturbances: 0-None Auditory Disturbances: 0-None Visual Disturbances: 0-None Headache: 0-None Present CIWA-Ar Total Score: 10 S Progress Note (SOAP) Subjective: sweats shakes irritable agitation Objective: 10/17/19 11:55 Vital Signs Temperature 97.7 F 10/17/19 09:21 Pulse Rate 68 10/17/19 09:21 Respiratory Rate 18 10/17/19 09:21 Blood Pressure 127/74 10/17/19 09:21 O2 Sat by Pulse Oximetry (%) Laboratory Tests 10/17/19 10/17/19 10/17/19 07:30 07:30 07:30 WBC 3.4 L RBC 4.60 Hgb 12.8 Hct 38.7 MCV 84.1 MCH 27.8 MCHC 33.0 RDW 15.9 Plt Count 281 D MPV 9.6 Sodium 137 Potassium 4.2 Chloride 104 Carbon Dioxide 27 Anion Gap 6 L BUN 8.4 Creatinine 1.0 Est GFR (CKD-EPI)AfAm 97.77 Est GFR (CKD-EPI)NonAf 84.35 Random Glucose 110 H Calcium 8.7 Total Bilirubin 0.6 AST 14 L ALT 27 Alkaline Phosphatase 65 Total Protein 7.0 Albumin 3.3 L RPR Titer Nonreactive aaox3 ambulating no acute distress Assessment: 10/17/19 11:56 withdrawals Plan: continue detox increase fluids
--- NOTE | 2019-10-17 15:32 | EKG ---
Test Reason : Blood Pressure : / mmHG Vent. Rate : 059 BPM Atrial Rate : 059 BPM P-R Int : 158 ms QRS Dur : 082 ms QT Int : 416 ms P-R-T Axes : 030 -66 033 degrees QTc Int : 411 ms SINUS BRADYCARDIA LEFT AXIS DEVIATION ABNORMAL ECG WHEN COMPARED WITH ECG OF 16-OCT-2019 21:12, NO SIGNIFICANT CHANGE WAS FOUND Confirmed by MD Bryan, Jovanni ([id number]) on 10/17/2019 3:32:30 PM Referred By: Rock Oakley Confirmed By:Jovanni Adams MD
[2019-10-17] MEDS: THIAMINE HCL 100 MG TABLET (FP) PO SCH (21:09)
[2019-10-17] MEDS: MELATONIN 5 MG TABLETS PO PRN (21:10)
[2019-10-18] MEDS ORDERED: METHADONE HCL 10 MG TABLET ONE (04:36)
[2019-10-18] MEDS ORDERED: METHADONE HCL 40 MG DISPERSABLE TABLET ONE (04:36)
[2019-10-18] MEDS ORDERED: METHADONE HCL 40 MG DISPERSABLE TABLET PO SCH (06:00)
[2019-10-18] MEDS: guaiFENesin 200 MG/10 ML 10 ML UNIT-DOSE CUPS PO PRN ×2 (06:00→17:42)
[2019-10-18] MEDS: METHADONE 40 MG, METHADONE 30 MG PO SCH (06:01)
[2019-10-18] MEDS: chlordiazePOXIDE 5 MG CAPSULE PO SCH ×3 (06:02→22:13)
[2019-10-18] MEDS: AMOX TR/POT CLAV 875MG/125MG TABLETS (FP) PO SCH ×2 (07:08→17:40)
[2019-10-18] MEDS: NICOTINE 14 MG/24 HOURS TOPICAL PATCH TD SCH (09:19)
[2019-10-18] MEDS: PRENATAL VITAMINS W/ FOLIC ACID TABLET (FP) PO SCH (09:19)
[2019-10-18] MEDS: NICOTINE POLACRILEX 2 MG GUM BUC PRN (09:20)
[2019-10-18] MEDS ORDERED: HYDROCORTISONE 1% TOPICAL CREAM 30 GM TUBE TP PRN (11:45)
[2019-10-18] MEDS ORDERED: MELATONIN 5 MG TABLETS PO PRN (12:21)
--- NOTE | 2019-10-18 12:29 | PN ---
S CIWA - CIWA Score Nausea/Vomitin-No Nausea/No Vomiting Muscle Tremors: 2 Anxiety: 2 Agitation: 2 Paroxysmal Sweats: 1-Minimal Palms Moist Orientation: 0-Oriented Tacttile Disturbances: 0-None Auditory Disturbances: 0-None Visual Disturbances: 0-None Headache: 0-None Present CIWA-Ar Total Score: 7 BHS Progress Note (SOAP) Subjective: sweats feeling much better I will like the melatonin increased; it is helping with my sleep dry skin/ dark rash like on my forehead. Objective: 10/18/19 12:22 Vital Signs Temperature 96.8 F L 10/18/19 09:34 Pulse Rate 63 10/18/19 09:34 Respiratory Rate 17 10/18/19 09:34 Blood Pressure 131/73 10/18/19 09:34 O2 Sat by Pulse Oximetry (%) Laboratory Tests 10/17/19 10/17/19 10/17/19 07:30 07:30 07:30 WBC 3.4 L RBC 4.60 Hgb 12.8 Hct 38.7 MCV 84.1 MCH 27.8 MCHC 33.0 RDW 15.9 Plt Count 281 D MPV 9.6 Sodium 137 Potassium 4.2 Chloride 104 Carbon Dioxide 27 Anion Gap 6 L BUN 8.4 Creatinine 1.0 Est GFR (CKD-EPI)AfAm 97.77 Est GFR (CKD-EPI)NonAf 84.35 Random Glucose 110 H Calcium 8.7 Total Bilirubin 0.6 AST 14 L ALT 27 Alkaline Phosphatase 65 Total Protein 7.0 Albumin 3.3 L RPR Titer Nonreactive aaox3 ambulating no acute distress Assessment: 10/18/19 12:23 withdrawal sx Plan: continue detox melatonin 10mg qhs hydrocortizone 1% cream
[2019-10-18] MEDS: THIAMINE HCL 100 MG TABLET (FP) PO SCH (22:13)
[2019-10-19] MEDS ORDERED: chlordiazePOXIDE HCL 10 MG CAPSULE PO PRN
[2019-10-19] MEDS ORDERED: METHADONE HCL 10 MG TABLET ONE (04:53)
[2019-10-19] MEDS ORDERED: METHADONE HCL 40 MG DISPERSABLE TABLET ONE (04:54)
[2019-10-19] MEDS: METHADONE 40 MG, METHADONE 30 MG PO SCH (05:29)
[2019-10-19] MEDS: chlordiazePOXIDE HCL 10 MG CAPSULE PO SCH ×3 (05:30→21:03)
[2019-10-19] MEDS: guaiFENesin 200 MG/10 ML 10 ML UNIT-DOSE CUPS PO PRN (05:33)
[2019-10-19] MEDS: AMOX TR/POT CLAV 875MG/125MG TABLETS (FP) PO SCH ×2 (07:15→17:00)
[2019-10-19] MEDS: NICOTINE 14 MG/24 HOURS TOPICAL PATCH TD SCH (10:42)
[2019-10-19] MEDS: PRENATAL VITAMINS W/ FOLIC ACID TABLET (FP) PO SCH (10:42)
--- NOTE | 2019-10-19 12:08 | PN ---
S CIWA - CIWA Score Nausea/Vomitin-No Nausea/No Vomiting Muscle Tremors: 2 Anxiety: 1-Mildly Anxious Agitation: 1-Slight > Activity Paroxysmal Sweats: No Perspiration Orientation: 0-Oriented Tacttile Disturbances: 0-None Auditory Disturbances: 0-None Visual Disturbances: 0-None Headache: 0-None Present CIWA-Ar Total Score: 4 BHS Progress Note (SOAP) Subjective: interrupted sleep anxiety Objective: 10/19/19 12:07 Vital Signs Temperature 97.7 F 10/19/19 09:55 Pulse Rate 66 10/19/19 09:55 Respiratory Rate 18 10/19/19 09:55 Blood Pressure 137/80 10/19/19 09:55 O2 Sat by Pulse Oximetry (%) aaox3 ambulating no acute distress Assessment: 10/19/19 12:07 mild withdrawals Plan: complete detox d/c at 7am pt going to his [facility] clinic
[2019-10-19] MEDS: THIAMINE HCL 100 MG TABLET (FP) PO SCH (21:03)
[2019-10-20] MEDS ORDERED: chlordiazePOXIDE HCL 10 MG CAPSULE PO ONE (05:00)
[2019-10-20] MEDS ORDERED: METHADONE HCL 10 MG TABLET ONE (05:21)
[2019-10-20] MEDS ORDERED: METHADONE HCL 40 MG DISPERSABLE TABLET ONE (05:21)
[2019-10-20] MEDS: METHADONE 40 MG, METHADONE 30 MG PO SCH (05:22)
[2019-10-20] MEDS: guaiFENesin 200 MG/10 ML 10 ML UNIT-DOSE CUPS PO PRN (05:26)
[2019-10-20 07:10] VITALS: BP 140/80; PULSE 80; TEMP 97.3
--- NOTE | 2019-10-20 16:20 | DS ---
[facility] Detox Discharge Summary Admission Date: 10/16/19 Discharge Date: 10/20/19 - History Present History: Alcohol Dependence, Cocaine Dependence, MMTP ([facility] MMTP) Additional Comments: Detox treatment completed per protocol. Pertinent Past History: Denies PMHx and Psych Hx - Physical Exam Results Vital Signs: Vital Signs Temperature 97.3 F L 10/20/19 07:09 Pulse Rate 80 10/20/19 07:09 Respiratory Rate 17 10/20/19 07:09 Blood Pressure 140/80 10/20/19 07:09 O2 Sat by Pulse Oximetry (%) Pertinent Admission Physical Exam Findings: Laboratory Tests 10/17/19 10/17/19 10/17/19 07:30 07:30 07:30 WBC 3.4 L RBC 4.60 Hgb 12.8 Hct 38.7 MCV 84.1 MCH 27.8 MCHC 33.0 RDW 15.9 Plt Count 281 D MPV 9.6 Sodium 137 Potassium 4.2 Chloride 104 Carbon Dioxide 27 Anion Gap 6 L BUN 8.4 Creatinine 1.0 Est GFR (CKD-EPI)AfAm 97.77 Est GFR (CKD-EPI)NonAf 84.35 Random Glucose 110 H Calcium 8.7 Total Bilirubin 0.6 AST 14 L ALT 27 Alkaline Phosphatase 65 Total Protein 7.0 Albumin 3.3 L RPR Titer Nonreactive - Treatment Hospital Course: Discharged Condition Good (Pt discharged very early this morning at 6:37 A.M) - Medication Discharge Medications: Ambulatory Orders NK [No Known Home Medication] 10/03/15 - Diagnosis (1) Alcohol dependence with uncomplicated withdrawal Status: Acute (2) Cocaine dependence Status: Acute Qualifiers: Substance use status: uncomplicated Qualified Code(s): F14.20 - Cocaine dependence, uncomplicated (3) Nicotine dependence Status: Acute Qualifiers: Nicotine product type: cigarettes Substance use status: in withdrawal Qualified Code(s): F17.213 - Nicotine dependence, cigarettes, with withdrawal (4) Methadone maintenance therapy patient Status: Chronic - AMA Did Patient Leave Against Medical Advice: No
== END 2019-10-20 06:37 | disposition home or self-care (01) | DRG 773 ==
LOC: YASAS 17:27 → Y6N 20:58
PROVIDERS: ADMIT Allergy & Immunology; ATTEND Allergy & Immunology
PROC: HZ2ZZZZ Detoxification Services for Substance Abuse Treatment (ICD-10-PCS; principal; 2019-10-16)
DX: F10.230 Alcohol dependence with withdrawal, uncomplicated (principal); F11.20 Opioid dependence, uncomplicated; F14.20 Cocaine dependence, uncomplicated; F17.213 Nicotine dependence, cigarettes, with withdrawal; R25.1 Tremor, unspecified
CPT/HCPCS: 36415; 80053; 85027; 86593; 93005; 93010

== ENCOUNTER 2019-11-22 15:30 | Inpatient (IN) | payer OTHER ==
--- NOTE | 2019-11-22 18:26 | HP ---
CIWA Score Nausea/Vomitin-No Nausea/No Vomiting Muscle Tremors: 1-None Visible, but [place] Anxiety: 1-Mildly Anxious Agitation: 0-Normal Activity Paroxysmal Sweats: 1-Minimal Palms Moist Orientation: 0-Oriented Tacttile Disturbances: 0-None Auditory Disturbances: 0-None Visual Disturbances: 0-None Headache: 2-Mild CIWA-Ar Total Score: 5 - Admission Criteria OASAS Guidelines: Admission for Medically Managed Detox: Requires at least one of the followin. CIWA greater than 12 2. Seizures within the past 24 hours 3. Delirium tremens within the past 24 hours 4. Hallucinations within the past 24 hours 5. Acute intervention needed for co occurring medical disorder 6. Acute intervention needed for co occurring psychiatric disorder 7. Severe withdrawal that cannot be handled at a lower level of care (continued vomiting, continued diarrhea, abnormal vital signs) requiring intravenous medication and/or fluids 8. Admitting History and Physical - Smoking History Smoking history: Current every day smoker Have you smoked in the past 12 months: Yes Aproximately how many cigarettes per day: 10 - Alcohol/Substance Use Hx Alcohol Use: Yes History of Substance Use: reports: Cocaine, Heroin - Social History ADL: Independent History of Recent Travel: No Admission ROS [facility] - HPI Allergies/Adverse Reactions: Allergies Allergy/AdvReac Type Severity Reaction Status Date / Time No Known Allergies Allergy Verified 11/22/19 18:51 History of Present Illness: pt here requesting detox from etoh use , reports 2 x 6-pk and 2 x 1/2 pint vodka ,latest use yesterday . on MMTP [address] PMHX /PSHX : denies PSych : denies Exam Limitations: No Limitations - Review of Systems Constitutional: No Symptoms Reported EENT: reports: No Symptoms Reported (denies dysphagia) Respiratory: reports: Cough Cardiac: reports: No Symptoms Reported GI: reports: No Symptoms Reported : reports: No Symptoms Reported Musculoskeletal: reports: No Symptoms Reported Integumentary: reports: No Symptoms Reported Neuro: reports: Headache Endocrine: reports: No Symptoms Reported Hematology: reports: No Symptoms Reported Psychiatric: reports: Orientated x3 Patient History - Patient Medical History Hx Anemia: No Hx Asthma: No Hx Chronic Obstructive Pulmonary Disease (COPD): No Hx Cancer: No Hx Cardiac Disorders: No Hx Congestive Heart Failure: No Hx Hypertension: No Hx Hypercholesterolemia: No Hx Pacemaker: No HX Cerebrovascular Accident: No Hx Seizures: No Hx Dementia: No Hx Diabetes: No Hx Gastrointestinal Disorders: No Hx Liver Disease: No Hx Genitourinary Disorders: No Hx Sexually Transmitted Disorders: No Hx Renal Disease (ESRD): No Hx Thyroid Disease: No Hx Human Immunodeficiency Virus (HIV): No (Negative 2019) Hx Hepatitis C: No Hx Depression: No Hx Suicide Attempt: No Hx Bipolar Disorder: No Hx Schizophrenia: No - Patient Surgical History Past Surgical History: No Hx Neurologic Surgery: No Hx Cataract Extraction: No Hx Cardiac Surgery: No Hx Lung Surgery: No Hx Breast Surgery: No Hx Breast Biopsy: No Hx Abdominal Surgery: No Hx Appendectomy: No Hx Cholecystectomy: No Hx Genitourinary Surgery: No Hx Section: No Hx Orthopedic Surgery: No Anesthesia Reaction: No - PPD History Date: 07/11/19 Results: 0 MM - Smoking Cessation Smoking history: Current every day smoker Have you smoked in the past 12 months: Yes Aproximately how many cigarettes per day: 10 Cigars Per Day: 0 Hx Chewing Tobacco Use: No Initiated information on smoking cessation: Yes 'Breaking Loose' booklet given: 11/22/19 - Substances abused Crack Substance route: Smoking Frequency: Daily Amount used: 5 to 6 bags Age of first use: 23 Date of last use: 11/21/19 Alcohol Substance route: Oral Frequency: Daily Amount used: 2 of 6 packs of beer/ 2 to 3 half a pint of vodka. Age of first use: 12 Date of last use: 11/21/19 Admission Physical Exam S - Physical General Appearance: Yes: Mild Distress HEENTM: Yes: EOMI, Hearing grossly Normal, Normocephalic, Normal Voice Respiratory: Yes: Chest Non-Tender, Lungs Clear, Normal Breath Sounds, No Respiratory Distress, No Accessory Muscle Use Neck: Yes: No masses,lesions,Nodules, Trachea in good position Cardiology: Yes: Regular Rhythm, Regular Rate, S1, S2 Abdominal: Yes: Non Tender, Soft Musculoskeletal: Yes: Gait Steady Extremities: Yes: Normal Range of Motion, Non-Tender Neurological: Yes: Fully Oriented, Alert, Motor Strength 5/5 Integumentary: Yes: Warm - Diagnostic (1) Alcohol dependence with uncomplicated withdrawal Current Visit: Yes Status: Chronic (2) Cocaine dependence Current Visit: Yes Status: Chronic Qualifiers: Substance use status: uncomplicated Qualified Code(s): F14.20 - Cocaine dependence, uncomplicated (3) Nicotine dependence Current Visit: Yes Status: Chronic Qualifiers: Nicotine product type: cigarettes (4) Methadone maintenance therapy patient Current Visit: Yes Status: Chronic Breathalyzer - Breathalyzer Breathalyzer: 0 Urine Drug Screen - Test Device Lot number: [id number] Expiration date: 08/18/21 - Control Is test valid?: Yes - Results Drug screen NEGATIVE: No Urine drug screen results: SIVA-Cocaine, FEN-Fentanyl, MOP-Opiates, MTD- Methadone, BZO-Benzodiazepines Inpatient Rehab Admission - Rehab Decision to Admit Inpatient rehab admission?: No
[2019-11-22] MEDS ORDERED: MAGNESIUM HYDROX 2400MG/30ML ORAL SUSPENSION 30 ML CUP PO PRN (18:30)
[2019-11-22] MEDS ORDERED: MENTHOL/PHENOL 1 EACH UD MM PRN (18:30)
[2019-11-22] MEDS ORDERED: ACETAMINOPHEN 325 MG TABLET (FP) PO PRN ×2 (18:30)
[2019-11-22] MEDS ORDERED: NICOTINE POLACRILEX 2 MG GUM BUC PRN (18:30)
[2019-11-22] MEDS ORDERED: MAG HYDROX/AL HYDROX/SIMETH 30 ML UNIT-DOSE CUP PO PRN (18:30)
[2019-11-22] MEDS ORDERED: BISMUTH SUBSALICYLATE 524 MG/30 ML UD PO PRN (18:30)
[2019-11-22] MEDS ORDERED: IBUPROFEN 400 MG TABLET (FP) PO PRN (18:30)
[2019-11-22] MEDS ORDERED: MELATONIN 5 MG TABLETS PO PRN (18:30)
[2019-11-22] MEDS ORDERED: MAGNESIUM CITRATE 300 ML BOTTLE PO PRN (18:30)
[2019-11-22] MEDS ORDERED: diazePAM 5 MG TABLET PO PRN (18:43)
[2019-11-22 19:00] VITALS: BMI 24.3
[2019-11-22] MEDS ORDERED: THIAMINE HCL 100 MG TABLET (FP) PO SCH (22:00)
[2019-11-23] MEDS ORDERED: METHADONE HCL 10 MG TABLET PO SCH (08:15)
[2019-11-23] MEDS ORDERED: METHADONE 40 MG, METHADONE 30 MG PO SCH (08:35)
[2019-11-23] MEDS ORDERED: METHADONE HCL 10 MG TABLET ONE (08:42)
[2019-11-23] MEDS ORDERED: METHADONE HCL 40 MG DISPERSABLE TABLET ONE (08:43)
--- NOTE | 2019-11-23 09:48 | PN ---
[facility] CIWA - CIWA Score Nausea/Vomitin-No Nausea/No Vomiting Muscle Tremors: None Anxiety: 0-No Anxiety, at Ease Agitation: 0-Normal Activity Paroxysmal Sweats: No Perspiration Orientation: 0-Oriented Tacttile Disturbances: 0-None Auditory Disturbances: 1-Very Mild Visual Disturbances: 1-Very Mild Sensitivity Headache: 1-Very Mild CIWA-Ar Total Score: 3 [facility] Progress Note (SOAP) Subjective: No complaints, asking for his methadone/verification Objective: 11/23/19 09:44 Vital Signs - 24 hr 11/22/19 11/22/19 11/23/19 18:52 20:36 00:33 Temperature 97.9 F 97.9 F Pulse Rate 65 70 Respiratory 17 17 18 Rate Blood Pressure 130/78 134/77 11/23/19 11/23/19 03:28 06:13 Temperature 97.2 F L Pulse Rate 62 Respiratory 18 18 Rate Blood Pressure 111/65 PE Gnl: WDWN, wants his methadone dose MS: awake, alert Coord: nl Gait; nl Assessment: 11/23/19 09:44 1. Alcohol use disorder 2. Opioid use disorder on methadone maintenence Plan: 1. Pt was admitted for overnight observation with plans for Rehab bed today if available. 2. spoke to admitting, will get back to me on bed availability
[2019-11-23] MEDS ORDERED: PRENATAL VITAMINS W/ FOLIC ACID TABLET (FP) PO SCH (10:00)
--- NOTE | 2019-11-23 10:04 | DS ---
[facility] Detox Discharge Summary Admission Date: 11/22/19 Discharge Date: 11/23/19 - History Present History: Alcohol Dependence Additional Comments: On methadone maintenence - Physical Exam Results Vital Signs: Vital Signs Temperature 98.9 F 11/23/19 09:03 Pulse Rate 66 11/23/19 09:03 Respiratory Rate 16 11/23/19 09:03 Blood Pressure 129/71 11/23/19 09:03 O2 Sat by Pulse Oximetry (%) Pertinent Admission Physical Exam Findings: Gnl: WDWN, in mild distress/requesting his maintenence methadone Mental status: awake, alert, nl language function Coord and gait: nl - Treatment Hospital Course: Rehab Referral Accepted Patient has Accepted a Rehab Referral to: [facility] - Medication Discharge Medications: Ambulatory Orders NK [No Known Home Medication] 10/03/15 - AMA Did Patient Leave Against Medical Advice: No
[2019-11-23 10:31] LABS: HEMATOCRIT 37.8 % (35.4-49); HEMOGLOBIN 12.5 GM/dL (11.7-16.9); MCH 27.8 pg (25.7-33.7); MEAN CELL VOLUME 84.2 fl (80-96); MEAN PLT VOLUME 9.3 fl (7.5-11.1); PLATELET COUNT 331 K/MM3 (134-434); RBC 4.49 M/mm3 (4.00-5.60); RDW 16.4 % (11.9-15.9); WHITE BLOOD COUNT 3.8 K/mm3 (4.0-10.0)
[2019-11-23 10:58] LABS: ALBUMIN 3.2 g/dl (3.4-5.0); BILIRUBIN,TOTAL 0.7 mg/dL (0.2-1); BLOOD UREA NITROGEN 11.7 mg/dL (7-18); CALCIUM 8.5 mg/dL (8.5-10.1); CREATININE 0.9 mg/dL (0.55-1.3); POTASSIUM 4.4 mmol/L (3.5-5.1)
[2019-11-23 14:24] VITALS: BP 124/62; PULSE 69; TEMP 97.9
== END 2019-11-23 15:31 | disposition other institution (70) | DRG 773 ==
LOC: YASAS 15:30 → Y3N 19:17
PROVIDERS: ADMIT Allergy & Immunology; ATTEND Allergy & Immunology
PROC: HZ2ZZZZ Detoxification Services for Substance Abuse Treatment (ICD-10-PCS; principal; 2019-11-22)
DX: F10.230 Alcohol dependence with withdrawal, uncomplicated (principal); F11.20 Opioid dependence, uncomplicated; F14.20 Cocaine dependence, uncomplicated; F17.210 Nicotine dependence, cigarettes, uncomplicated
CPT/HCPCS: 36415; 80053; 85027

== ENCOUNTER 2019-11-23 15:39 | Inpatient (IN) | payer OTHER ==
--- NOTE | 2019-11-23 15:44 | HP ---
[facility] Rehab Assess/Revision - Admission History Admitted to Rehab from: [facility] [address] [place] [facility] Date of Admission to Rehab: 11/23/19 - Findings Detox History & Physical reviewed: Yes Concur with findings: Yes Comments/Additional Findings: Pt is a 54 y/o male with a hx of GALO- heroin,alcohol,cocaine admitted to rehab from a one night stay on . Pt is on Methadone 70 mg po daily, last dosed on on 11/23/19. PMHx:Denies. Psych Hx:Denies. extremities/Skin:no edema;skin intact Inpatient Rehab Admission - Rehab Decision to Admit Inpatient rehab admission?: Yes - Initial Determination Are CD services needed?: Yes Free of communicable disease: Yes Not in need of hospitalization: Yes - Rehab Admission Criteria Previous failed treatment: Yes Poor recovery environment: Yes Comorbidities: Yes Lacks judgement: Yes Patient is meeting Inpatient Rehab admission criteria:: Yes
[2019-11-23] MEDS ORDERED: MAGNESIUM CITRATE 300 ML BOTTLE PO PRN (15:51)
[2019-11-23] MEDS ORDERED: P-EPHED 60MG/TRIPROLIDI 2.5MG TABLET PO PRN (15:51)
[2019-11-23] MEDS ORDERED: IBUPROFEN 400 MG TABLET (FP) PO PRN (15:51)
[2019-11-23] MEDS ORDERED: MAGNESIUM HYDROX 2400MG/30ML ORAL SUSPENSION 30 ML CUP PO PRN (15:51)
[2019-11-23] MEDS ORDERED: hydrOXYzine PAMOATE 25 MG CAPSULE (FP) PO PRN ×2 (15:51→15:58)
[2019-11-23] MEDS ORDERED: guaiFENesin 200 MG/10 ML 10 ML UNIT-DOSE CUPS PO PRN (15:51)
[2019-11-23] MEDS ORDERED: MAG HYDROX/AL HYDROX/SIMETH 30 ML UNIT-DOSE CUP PO PRN (15:51)
[2019-11-23] MEDS ORDERED: ACETAMINOPHEN 325 MG TABLET (FP) PO PRN (15:51)
[2019-11-23] MEDS ORDERED: MENTHOL/PHENOL 1 EACH UD MM PRN (15:51)
[2019-11-23] MEDS ORDERED: LOPERAMIDE HCL 2 MG CAPSULE PO PRN (15:51)
[2019-11-23] MEDS: THIAMINE HCL 100 MG TABLET (FP) PO SCH (21:49)
[2019-11-23] MEDS: MELATONIN 5 MG TABLETS PO SCH (21:49)
[2019-11-24] MEDS ORDERED: METHADONE HCL 10 MG TABLET ONE (05:15)
[2019-11-24] MEDS ORDERED: METHADONE HCL 40 MG DISPERSABLE TABLET ONE (05:16)
[2019-11-24] MEDS ORDERED: METHADONE HCL 10 MG TABLET PO SCH (06:00)
[2019-11-24] MEDS: METHADONE 40 MG, METHADONE 30 MG PO SCH (06:25)
[2019-11-24] MEDS: PRENATAL VITAMINS W/ FOLIC ACID TABLET (FP) PO SCH (09:29)
[2019-11-24] MEDS: NICOTINE 14 MG/24 HOURS TOPICAL PATCH TD SCH (09:29)
[2019-11-24] MEDS: MELATONIN 5 MG TABLETS PO SCH (22:23)
[2019-11-24] MEDS: THIAMINE HCL 100 MG TABLET (FP) PO SCH (22:23)
[2019-11-25] MEDS ORDERED: METHADONE HCL 40 MG DISPERSABLE TABLET ONE (05:08)
[2019-11-25] MEDS ORDERED: METHADONE HCL 10 MG TABLET ONE (05:08)
[2019-11-25] MEDS: METHADONE 40 MG, METHADONE 30 MG PO SCH (06:34)
[2019-11-25] MEDS: PRENATAL VITAMINS W/ FOLIC ACID TABLET (FP) PO SCH (10:02)
[2019-11-25] MEDS: NICOTINE POLACRILEX 4 MG GUM BUC PRN (10:02)
[2019-11-25] MEDS: NICOTINE 14 MG/24 HOURS TOPICAL PATCH TD SCH (10:02)
[2019-11-25] MEDS: MELATONIN 5 MG TABLETS PO SCH ×2 (23:07→23:08)
[2019-11-25] MEDS: THIAMINE HCL 100 MG TABLET (FP) PO SCH ×2 (23:07→23:09)
[2019-11-26] MEDS ORDERED: METHADONE HCL 40 MG DISPERSABLE TABLET ONE (05:55)
[2019-11-26] MEDS ORDERED: METHADONE HCL 10 MG TABLET ONE (05:55)
[2019-11-26] MEDS: METHADONE 40 MG, METHADONE 30 MG PO SCH (05:59)
[2019-11-26] MEDS: PRENATAL VITAMINS W/ FOLIC ACID TABLET (FP) PO SCH (10:07)
[2019-11-26] MEDS: NICOTINE 14 MG/24 HOURS TOPICAL PATCH TD SCH (10:07)
[2019-11-26] MEDS: THIAMINE HCL 100 MG TABLET (FP) PO SCH (21:11)
[2019-11-26] MEDS: MELATONIN 5 MG TABLETS PO SCH (21:11)
[2019-11-27] MEDS ORDERED: METHADONE HCL 10 MG TABLET ONE (05:51)
[2019-11-27] MEDS ORDERED: METHADONE HCL 40 MG DISPERSABLE TABLET ONE (05:51)
[2019-11-27] MEDS: METHADONE 40 MG, METHADONE 30 MG PO SCH (06:28)
[2019-11-27] MEDS: NICOTINE 14 MG/24 HOURS TOPICAL PATCH TD SCH (10:17)
[2019-11-27] MEDS: PRENATAL VITAMINS W/ FOLIC ACID TABLET (FP) PO SCH (10:17)
[2019-11-27] MEDS: THIAMINE HCL 100 MG TABLET (FP) PO SCH (22:00)
[2019-11-27] MEDS: MELATONIN 5 MG TABLETS PO SCH (22:00)
[2019-11-28] MEDS ORDERED: METHADONE HCL 40 MG DISPERSABLE TABLET ONE (05:57)
[2019-11-28] MEDS ORDERED: METHADONE HCL 10 MG TABLET ONE (05:57)
[2019-11-28] MEDS: METHADONE 40 MG, METHADONE 30 MG PO SCH (06:30)
[2019-11-28] MEDS: NICOTINE 14 MG/24 HOURS TOPICAL PATCH TD SCH (10:13)
[2019-11-28] MEDS: PRENATAL VITAMINS W/ FOLIC ACID TABLET (FP) PO SCH (10:13)
[2019-11-28] MEDS: THIAMINE HCL 100 MG TABLET (FP) PO SCH (21:40)
[2019-11-28] MEDS: MELATONIN 5 MG TABLETS PO SCH (21:40)
[2019-11-29] MEDS ORDERED: METHADONE HCL 10 MG TABLET ONE (05:21)
[2019-11-29] MEDS ORDERED: METHADONE HCL 40 MG DISPERSABLE TABLET ONE (05:22)
[2019-11-29] MEDS: METHADONE 40 MG, METHADONE 30 MG PO SCH (06:34)
[2019-11-29] MEDS: NICOTINE 14 MG/24 HOURS TOPICAL PATCH TD SCH (10:14)
[2019-11-29] MEDS: PRENATAL VITAMINS W/ FOLIC ACID TABLET (FP) PO SCH (10:14)
[2019-11-29] MEDS: NICOTINE POLACRILEX 4 MG GUM BUC PRN (10:14)
[2019-11-29] MEDS: MELATONIN 5 MG TABLETS PO SCH (21:14)
[2019-11-29] MEDS: THIAMINE HCL 100 MG TABLET (FP) PO SCH (21:14)
[2019-11-30] MEDS ORDERED: METHADONE HCL 10 MG TABLET ONE (04:10)
[2019-11-30] MEDS ORDERED: METHADONE HCL 40 MG DISPERSABLE TABLET ONE (04:10)
[2019-11-30] MEDS: METHADONE 40 MG, METHADONE 30 MG PO SCH (06:18)
[2019-11-30] MEDS: PRENATAL VITAMINS W/ FOLIC ACID TABLET (FP) PO SCH (10:09)
[2019-11-30] MEDS: NICOTINE 14 MG/24 HOURS TOPICAL PATCH TD SCH (10:09)
[2019-11-30] MEDS: THIAMINE HCL 100 MG TABLET (FP) PO SCH (21:15)
[2019-11-30] MEDS: MELATONIN 5 MG TABLETS PO SCH (21:15)
[2019-12-01] MEDS ORDERED: METHADONE HCL 10 MG TABLET PO SCH (06:45)
[2019-12-01] MEDS ORDERED: METHADONE HCL 40 MG DISPERSABLE TABLET ONE (07:40)
[2019-12-01] MEDS ORDERED: METHADONE HCL 10 MG TABLET ONE (07:40)
[2019-12-01] MEDS: METHADONE 40 MG, METHADONE 30 MG PO SCH (07:41)
[2019-12-01] MEDS: PRENATAL VITAMINS W/ FOLIC ACID TABLET (FP) PO SCH (10:01)
[2019-12-01] MEDS: NICOTINE 14 MG/24 HOURS TOPICAL PATCH TD SCH (10:02)
[2019-12-01] MEDS: THIAMINE HCL 100 MG TABLET (FP) PO SCH (21:07)
[2019-12-01] MEDS: MELATONIN 5 MG TABLETS PO SCH (21:07)
[2019-12-02] MEDS ORDERED: METHADONE HCL 10 MG TABLET ONE (05:46)
[2019-12-02] MEDS ORDERED: METHADONE HCL 40 MG DISPERSABLE TABLET ONE (05:46)
[2019-12-02] MEDS: METHADONE 40 MG, METHADONE 30 MG PO SCH (06:07)
[2019-12-02] MEDS: NICOTINE 14 MG/24 HOURS TOPICAL PATCH TD SCH (09:42)
[2019-12-02] MEDS: PRENATAL VITAMINS W/ FOLIC ACID TABLET (FP) PO SCH (09:43)
[2019-12-02] MEDS: MELATONIN 5 MG TABLETS PO SCH (21:08)
[2019-12-02] MEDS: THIAMINE HCL 100 MG TABLET (FP) PO SCH (21:09)
[2019-12-03] MEDS ORDERED: METHADONE HCL 10 MG TABLET ONE (04:09)
[2019-12-03] MEDS ORDERED: METHADONE HCL 40 MG DISPERSABLE TABLET ONE (04:09)
[2019-12-03] MEDS: METHADONE 40 MG, METHADONE 30 MG PO SCH (06:21)
[2019-12-03] MEDS: NICOTINE 14 MG/24 HOURS TOPICAL PATCH TD SCH (10:03)
[2019-12-03] MEDS: PRENATAL VITAMINS W/ FOLIC ACID TABLET (FP) PO SCH (10:03)
[2019-12-03] MEDS: MELATONIN 5 MG TABLETS PO SCH (21:24)
[2019-12-03] MEDS: THIAMINE HCL 100 MG TABLET (FP) PO SCH (21:25)
[2019-12-03] MEDS: CARBAMIDE PEROXIDE 6.5% OTIC 15 ML BOTTLE AU SCH (21:27)
[2019-12-04] MEDS ORDERED: METHADONE HCL 10 MG TABLET ONE (06:22)
[2019-12-04] MEDS ORDERED: METHADONE HCL 40 MG DISPERSABLE TABLET ONE (06:23)
[2019-12-04] MEDS: METHADONE 40 MG, METHADONE 30 MG PO SCH (06:24)
[2019-12-04] MEDS: PRENATAL VITAMINS W/ FOLIC ACID TABLET (FP) PO SCH (10:43)
[2019-12-04] MEDS: CARBAMIDE PEROXIDE 6.5% OTIC 15 ML BOTTLE AU SCH ×2 (10:43→21:19)
[2019-12-04] MEDS: NICOTINE 14 MG/24 HOURS TOPICAL PATCH TD SCH (10:43)
--- NOTE | 2019-12-04 11:59 | CONSULT ---
[facility] Psychiatric Consult - Data Date of interview: 12/04/19 Admission source: 3N Identifying data: Mr Spencer is a 54 years old dicorced Black male, unemployed with no source of income, homeless admitted from detox on 11/23/19 for inpatient rehabilitation treatment for alcohol, opioid and cocaine Substance Abuse History: Reports history of alcohol, heroin and cocaine use. Refer to addiction counselor's summary for further information Medical History: Unremarkable. Patient is on methadone 70 mg/hs from [facility]. Smokes 10 cigarettes daily Psychiatric History: Denies history of previous psychiatric illness. However, reports seeing psychiatrist in the past for the treatment of insomnoia. told commercial underwriter while incarcerated at [facility] in the , he was prescribed Remeron for sleep and most recently while admitted for inpatient rehab to [facility], he was prescribed Both Remeron and Seroquel. Denies previous psychiatric hospitalization or suicidal attempt. At present, reports feeling fine but sleeps poorly. Requests to be ordered both Remeron and Seroquel. Physical/Sexual Abuse/Trauma History: Denies history of abuse as a child or DV relationship as an adult Mental Status Exam - Mental Status Exam Alert and Oriented to: Time, Place, Person Cognitive Function: Fair Patient Appearance: Disheveled Patient Behavior: Cooperative Speech Pattern: Clear Voice Loudness: Normal Thought Process: Intact, Goal Oriented Thought Disorder: Not Present Hallucinations: Denies Suicidal Ideation: Denies Homicidal Ideation: Denies Insight/Judgement: Poor Sleep: Poorly Appetite: Fair Muscle strength/Tone: Normal Gait/Station: Normal Psychiatric Findings - Problem List ([place] 1, 2,3) (1) Substance-induced sleep disorder Current Visit: Yes Status: Acute (2) Alcohol dependence Current Visit: Yes Status: Acute (3) Cocaine dependence Current Visit: Yes Status: Acute (4) Opioid dependence on agonist therapy Current Visit: Yes Status: Chronic (5) Nicotine dependence Current Visit: No Status: Chronic Qualifiers: Nicotine product type: cigarettes - Initial Treatment Plan Initial Treatment Plan: 1) Start Remeron 15 mg po HS and Belsomra 10 mg po HS prn for insomnia. 2) Continue inpatient rehabilitation. NB: Patient was educated about the possible adverse-effects of Seroquel(diabetes mellitus, tardive dyskinesia etc). He was asked to try other more benign agents before considering Seroquel for insomnia
[2019-12-04] MEDS: THIAMINE HCL 100 MG TABLET (FP) PO SCH (21:18)
[2019-12-04] MEDS: MIRTAZAPINE 15 MG TABLET (FP) PO SCH (21:18)
[2019-12-05] MEDS ORDERED: METHADONE HCL 40 MG DISPERSABLE TABLET ONE (06:01)
[2019-12-05] MEDS ORDERED: METHADONE HCL 10 MG TABLET ONE (06:01)
[2019-12-05] MEDS: METHADONE 40 MG, METHADONE 30 MG PO SCH (06:23)
[2019-12-05] MEDS: CARBAMIDE PEROXIDE 6.5% OTIC 15 ML BOTTLE AU SCH ×2 (10:32→21:27)
[2019-12-05] MEDS: NICOTINE 14 MG/24 HOURS TOPICAL PATCH TD SCH (10:32)
[2019-12-05] MEDS: PRENATAL VITAMINS W/ FOLIC ACID TABLET (FP) PO SCH (10:32)
[2019-12-05] MEDS: NICOTINE POLACRILEX 4 MG GUM BUC PRN (10:33)
[2019-12-05] MEDS: THIAMINE HCL 100 MG TABLET (FP) PO SCH (21:28)
[2019-12-05] MEDS: MIRTAZAPINE 15 MG TABLET (FP) PO SCH (21:28)
[2019-12-05] MEDS: SUVOREXANT 10 MG TABLET PO PRN (21:29)
[2019-12-06] MEDS ORDERED: METHADONE HCL 40 MG DISPERSABLE TABLET ONE (04:46)
[2019-12-06] MEDS ORDERED: METHADONE HCL 10 MG TABLET ONE (04:46)
[2019-12-06] MEDS: METHADONE 40 MG, METHADONE 30 MG PO SCH (06:28)
[2019-12-06] MEDS: PRENATAL VITAMINS W/ FOLIC ACID TABLET (FP) PO SCH (10:22)
[2019-12-06] MEDS: CARBAMIDE PEROXIDE 6.5% OTIC 15 ML BOTTLE AU SCH ×2 (10:22→21:19)
[2019-12-06] MEDS: NICOTINE 14 MG/24 HOURS TOPICAL PATCH TD SCH (10:22)
[2019-12-06] MEDS: THIAMINE HCL 100 MG TABLET (FP) PO SCH (21:19)
[2019-12-06] MEDS: MIRTAZAPINE 15 MG TABLET (FP) PO SCH (21:19)
[2019-12-06] MEDS: SUVOREXANT 10 MG TABLET PO PRN (21:19)
[2019-12-07] MEDS ORDERED: METHADONE HCL 40 MG DISPERSABLE TABLET ONE (04:50)
[2019-12-07] MEDS ORDERED: METHADONE HCL 10 MG TABLET ONE (04:50)
[2019-12-07] MEDS: METHADONE 40 MG, METHADONE 30 MG PO SCH (05:59)
[2019-12-07] MEDS: CARBAMIDE PEROXIDE 6.5% OTIC 15 ML BOTTLE AU SCH (09:39)
[2019-12-07] MEDS: NICOTINE 14 MG/24 HOURS TOPICAL PATCH TD SCH (09:40)
[2019-12-07] MEDS: PRENATAL VITAMINS W/ FOLIC ACID TABLET (FP) PO SCH (09:40)
--- NOTE | 2019-12-07 09:55 | PN ---
[facility] Progress Note Note: Patient requests increase in Remeron dosage. He is currently taking Remeron 15 mg/hs. Medication is increased to 30 mg/hs
[2019-12-07] MEDS: MIRTAZAPINE 30 MG TABLET (FP) PO SCH (21:19)
[2019-12-07] MEDS: THIAMINE HCL 100 MG TABLET (FP) PO SCH (21:19)
[2019-12-08] MEDS ORDERED: METHADONE HCL 10 MG TABLET ONE (04:21)
[2019-12-08] MEDS ORDERED: METHADONE HCL 40 MG DISPERSABLE TABLET ONE (04:21)
[2019-12-08] MEDS: METHADONE 40 MG, METHADONE 30 MG PO SCH (05:03)
[2019-12-08] MEDS: PRENATAL VITAMINS W/ FOLIC ACID TABLET (FP) PO SCH (09:39)
[2019-12-08] MEDS: NICOTINE 14 MG/24 HOURS TOPICAL PATCH TD SCH (09:40)
[2019-12-08] MEDS: MIRTAZAPINE 30 MG TABLET (FP) PO SCH (21:06)
[2019-12-08] MEDS: THIAMINE HCL 100 MG TABLET (FP) PO SCH (21:06)
[2019-12-09] MEDS ORDERED: METHADONE HCL 40 MG DISPERSABLE TABLET ONE (04:24)
[2019-12-09] MEDS ORDERED: METHADONE HCL 10 MG TABLET ONE (04:24)
[2019-12-09] MEDS: METHADONE 40 MG, METHADONE 30 MG PO SCH (06:46)
[2019-12-09] MEDS: PRENATAL VITAMINS W/ FOLIC ACID TABLET (FP) PO SCH (10:07)
[2019-12-09] MEDS: NICOTINE 14 MG/24 HOURS TOPICAL PATCH TD SCH (10:07)
[2019-12-09] MEDS: NICOTINE POLACRILEX 4 MG GUM BUC PRN (10:08)
--- NOTE | 2019-12-09 14:18 | PN ---
S Progress Note Note: Patient continues to sleep poorly despite taking Remeron 30 mg/hs and Belsomra 10 mg/hs prn. Will increase Belsomra dosage to 15 mg/hs prn
[2019-12-09] MEDS: SUVOREXANT 15 MG TABLET PO PRN (21:46)
[2019-12-09] MEDS: MIRTAZAPINE 30 MG TABLET (FP) PO SCH (23:18)
[2019-12-09] MEDS: THIAMINE HCL 100 MG TABLET (FP) PO SCH (23:18)
[2019-12-10] MEDS ORDERED: METHADONE HCL 10 MG TABLET ONE (04:15)
[2019-12-10] MEDS ORDERED: METHADONE HCL 40 MG DISPERSABLE TABLET ONE (04:15)
[2019-12-10] MEDS: METHADONE 40 MG, METHADONE 30 MG PO SCH (05:55)
[2019-12-10] MEDS: PRENATAL VITAMINS W/ FOLIC ACID TABLET (FP) PO SCH (09:39)
[2019-12-10] MEDS: NICOTINE 14 MG/24 HOURS TOPICAL PATCH TD SCH (09:39)
[2019-12-10] MEDS: MIRTAZAPINE 30 MG TABLET (FP) PO SCH (21:32)
[2019-12-10] MEDS: THIAMINE HCL 100 MG TABLET (FP) PO SCH (21:32)
[2019-12-10] MEDS: SUVOREXANT 15 MG TABLET PO PRN (21:33)
[2019-12-11] MEDS ORDERED: METHADONE HCL 10 MG TABLET ONE (05:21)
[2019-12-11] MEDS ORDERED: METHADONE HCL 40 MG DISPERSABLE TABLET ONE (05:21)
[2019-12-11] MEDS: METHADONE 40 MG, METHADONE 30 MG PO SCH (06:28)
[2019-12-11] MEDS: NICOTINE 14 MG/24 HOURS TOPICAL PATCH TD SCH (09:17)
[2019-12-11] MEDS: PRENATAL VITAMINS W/ FOLIC ACID TABLET (FP) PO SCH (09:17)
--- NOTE | 2019-12-11 10:13 | PN ---
Psychiatric Progress Note Vital Signs: Vital Signs Period Temp Pulse Resp BP Sys/Ashley Pulse Ox Last 24 Hr 97.5 F 65 18-18 136/90 97-97 Date of Session: 12/11/19 Chief Complaint:: "I'm not sleeping" HPI: Patient admitted to for treatment of alcohol, opioid and cocaine dependence. Consultation ordered due to c/o of insomnia. ROS: Patient is alert +oriented X3. Current Medications: Active Medications Generic Name Dose Route Start Last Admin Trade Name Freq PRN Reason Stop Dose Admin Acetaminophen 650 mg 11/23/19 15:51 Tylenol - PO Q4H PRN FEVER Al Hydroxide/Mg Hydroxide 30 ml 11/23/19 15:51 Mylanta Oral Suspension - PO Q6H PRN DYSPEPSIA Eucalyptus/Menthol/Phenol/Sorbitol 1 each 11/23/19 15:51 Cepastat Lozenge - MM Q4H PRN SORE THROAT Guaifenesin 10 ml 11/23/19 15:51 Robitussin - PO Q6H PRN COUGH Hydroxyzine Pamoate 25 mg 11/23/19 15:58 12/03/19 21:25 Vistaril - PO 25 mg Q4H PRN Administration ANXIETY Ibuprofen 400 mg 11/23/19 15:51 Motrin - PO Q6H PRN Pain Level 4-6 Loperamide HCl 4 mg 11/23/19 15:51 Imodium - PO Q6H PRN DIARRHEA Magnesium Citrate 300 ml 11/23/19 15:51 Citroma - PO Q48H PRN CONSTIPATION Magnesium Hydroxide 30 ml 11/23/19 15:51 Milk Of Magnesia - PO DAILY PRN CONSTIPATION Methadone HCl 40 mg/ Methadone 70 mg 12/01/19 07:00 12/11/19 06:28 HCl 30 mg PO 70 mg DAILY@0600 EPIFANIO Administration Mirtazapine 30 mg 12/07/19 22:00 12/10/19 21:32 Remeron - PO 30 mg HS EPIFANIO Administration Nicotine 14 mg 11/24/19 10:00 12/11/19 09:17 Nicoderm Patch - TD Not Given DAILY EPIFANIO Nicotine Polacrilex 4 mg 11/23/19 15:51 12/09/19 10:08 Nicorette Gum - BUC 4 mg Q2H PRN Administration NICOTINE REPLACEMENT RX Multivit/Folic Acid/Iron 1 tab 11/24/19 10:00 12/11/19 09:17 Vitamins (Sjr) - PO 1 tab DAILY EPIFANIO Administration Pseudoephedrine/Triprolidine 1 combo 11/23/19 15:51 Actifed - PO TID PRN NASAL CONGESTION Suvorexant 15 mg 12/09/19 22:00 12/10/19 21:33 Belsomra PO 15 mg HS PRN Administration INSOMNIA Thiamine HCl 100 mg 11/23/19 22:00 12/10/19 21:32 Vitamin B1 - PO 100 mg HS EPIFANIO Administration Medication(s) Change(s): Will d/c Belsomra 15mg HS. Will order Seroquel 50mg HS. Current Side Effect: No Lab tests ordered: No Lab tests reviewed: Yes Provider note:: Patient reports poor sleep despite accepting belsomra 15mg HS. States he is no longer interested in accepting belsomra and is interested in accepting seroquel at a small dose as he has taken it with positive effects in the past. Will order Seroquel 50mg HS. Patient also educated on the importance of proper sleep hygiene. Benefits and side effects discussed. Verbal consent given. Total face to face time:: 15 Mental Status Exam - Mental Status Exam Alert and Oriented to: Time, Place, Person Cognitive Function: Good Patient Appearance: Well Groomed Mood: Euthymic Affect: Mood Congruent Patient Behavior: Appropriate, Cooperative Speech Pattern: Appropriate Voice Loudness: Normal Thought Process: Intact, Goal Oriented Thought Disorder: Not Present Hallucinations: Denies Suicidal Ideation: Denies Homicidal Ideation: Denies Insight/Judgement: Poor Sleep: Poorly Appetite: Fair Muscle strength/Tone: Normal Gait/Station: Normal Psychiatric Treatment Plan - Problem List (1) Alcohol dependence Current Visit: Yes (2) Cocaine dependence Current Visit: Yes (3) Substance-induced sleep disorder Current Visit: Yes (4) Opioid dependence on agonist therapy Current Visit: Yes
--- NOTE | 2019-12-11 13:56 | PN ---
[facility] Progress Note Note: Pt c/o decreased hearing R ear- says he has a h/o ear wax accumulation. PE- R and L ear- no tragal pain, could not visualize ear canal - with cerumen a/p: Cerumen accumulation- debrox ear drops
[2019-12-11] MEDS: CARBAMIDE PEROXIDE 6.5% OTIC 15 ML BOTTLE AU SCH ×2 (15:57→21:16)
[2019-12-11] MEDS: QUEtiapine FUMARATE 50 MG TABLET PO SCH (21:15)
[2019-12-11] MEDS: THIAMINE HCL 100 MG TABLET (FP) PO SCH (21:15)
[2019-12-11] MEDS: MIRTAZAPINE 30 MG TABLET (FP) PO SCH (21:15)
[2019-12-12] MEDS ORDERED: METHADONE HCL 40 MG DISPERSABLE TABLET ONE (05:22)
[2019-12-12] MEDS ORDERED: METHADONE HCL 10 MG TABLET ONE (05:22)
[2019-12-12] MEDS: METHADONE 40 MG, METHADONE 30 MG PO SCH (06:19)
[2019-12-12] MEDS: CARBAMIDE PEROXIDE 6.5% OTIC 15 ML BOTTLE AU SCH ×2 (10:00→21:24)
[2019-12-12] MEDS: PRENATAL VITAMINS W/ FOLIC ACID TABLET (FP) PO SCH (10:00)
[2019-12-12] MEDS: NICOTINE 14 MG/24 HOURS TOPICAL PATCH TD SCH (10:01)
[2019-12-12] MEDS: SUVOREXANT 15 MG TABLET PO PRN (21:24)
[2019-12-12] MEDS: MIRTAZAPINE 30 MG TABLET (FP) PO SCH (21:24)
[2019-12-12] MEDS: QUEtiapine FUMARATE 50 MG TABLET PO SCH (21:24)
[2019-12-12] MEDS: THIAMINE HCL 100 MG TABLET (FP) PO SCH (21:24)
[2019-12-13] MEDS ORDERED: METHADONE HCL 40 MG DISPERSABLE TABLET ONE (04:31)
[2019-12-13] MEDS ORDERED: METHADONE HCL 10 MG TABLET ONE (04:31)
[2019-12-13] MEDS: METHADONE 40 MG, METHADONE 30 MG PO SCH (06:44)
[2019-12-13] MEDS: CARBAMIDE PEROXIDE 6.5% OTIC 15 ML BOTTLE AU SCH ×2 (09:26→21:15)
[2019-12-13] MEDS: NICOTINE 14 MG/24 HOURS TOPICAL PATCH TD SCH (09:26)
[2019-12-13] MEDS: PRENATAL VITAMINS W/ FOLIC ACID TABLET (FP) PO SCH (09:26)
[2019-12-13] MEDS: THIAMINE HCL 100 MG TABLET (FP) PO SCH (21:14)
[2019-12-13] MEDS: SUVOREXANT 15 MG TABLET PO PRN (21:14)
[2019-12-13] MEDS: MIRTAZAPINE 30 MG TABLET (FP) PO SCH (21:14)
[2019-12-13] MEDS: QUEtiapine FUMARATE 50 MG TABLET PO SCH (21:14)
[2019-12-14] MEDS ORDERED: METHADONE HCL 10 MG TABLET ONE (04:29)
[2019-12-14] MEDS ORDERED: METHADONE HCL 40 MG DISPERSABLE TABLET ONE (04:30)
[2019-12-14] MEDS: METHADONE 40 MG, METHADONE 30 MG PO SCH (06:12)
[2019-12-14] MEDS ORDERED: COLLOIDAL OATMEAL 1 BAR EACH TP PRN (10:07)
[2019-12-14] MEDS: PRENATAL VITAMINS W/ FOLIC ACID TABLET (FP) PO SCH (10:21)
[2019-12-14] MEDS: CARBAMIDE PEROXIDE 6.5% OTIC 15 ML BOTTLE AU SCH ×2 (10:21→21:21)
[2019-12-14] MEDS: NICOTINE 14 MG/24 HOURS TOPICAL PATCH TD SCH (10:21)
[2019-12-14] MEDS: THIAMINE HCL 100 MG TABLET (FP) PO SCH (21:22)
[2019-12-14] MEDS: QUEtiapine FUMARATE 50 MG TABLET PO SCH (21:23)
[2019-12-14] MEDS: MIRTAZAPINE 30 MG TABLET (FP) PO SCH (21:23)
[2019-12-15] MEDS ORDERED: METHADONE HCL 40 MG DISPERSABLE TABLET ONE (05:15)
[2019-12-15] MEDS ORDERED: METHADONE HCL 10 MG TABLET ONE (05:15)
[2019-12-15] MEDS: METHADONE 40 MG, METHADONE 30 MG PO SCH (06:03)
[2019-12-15] MEDS: NICOTINE 14 MG/24 HOURS TOPICAL PATCH TD SCH (09:32)
[2019-12-15] MEDS: PRENATAL VITAMINS W/ FOLIC ACID TABLET (FP) PO SCH (09:32)
[2019-12-15] MEDS: CARBAMIDE PEROXIDE 6.5% OTIC 15 ML BOTTLE AU SCH ×2 (09:33→21:20)
[2019-12-15] MEDS: MIRTAZAPINE 30 MG TABLET (FP) PO SCH (21:19)
[2019-12-15] MEDS: QUEtiapine FUMARATE 50 MG TABLET PO SCH (21:19)
[2019-12-15] MEDS: THIAMINE HCL 100 MG TABLET (FP) PO SCH (21:19)
[2019-12-15] MEDS: SUVOREXANT 15 MG TABLET PO PRN (21:20)
[2019-12-16] MEDS ORDERED: METHADONE HCL 10 MG TABLET ONE (05:13)
[2019-12-16] MEDS ORDERED: METHADONE HCL 40 MG DISPERSABLE TABLET ONE (05:13)
[2019-12-16] MEDS: METHADONE 40 MG, METHADONE 30 MG PO SCH (06:21)
[2019-12-16] MEDS: PRENATAL VITAMINS W/ FOLIC ACID TABLET (FP) PO SCH (10:04)
[2019-12-16] MEDS: NICOTINE 14 MG/24 HOURS TOPICAL PATCH TD SCH (10:04)
[2019-12-16] MEDS: CARBAMIDE PEROXIDE 6.5% OTIC 15 ML BOTTLE AU SCH ×2 (10:05→21:15)
[2019-12-16] MEDS: THIAMINE HCL 100 MG TABLET (FP) PO SCH (21:14)
[2019-12-16] MEDS: MIRTAZAPINE 30 MG TABLET (FP) PO SCH (21:14)
[2019-12-16] MEDS: QUEtiapine FUMARATE 50 MG TABLET PO SCH (21:14)
[2019-12-16] MEDS: SUVOREXANT 15 MG TABLET PO PRN (21:15)
[2019-12-17] MEDS ORDERED: METHADONE HCL 10 MG TABLET ONE (04:24)
[2019-12-17] MEDS ORDERED: METHADONE HCL 40 MG DISPERSABLE TABLET ONE (04:24)
[2019-12-17] MEDS: METHADONE 40 MG, METHADONE 30 MG PO SCH (06:42)
--- NOTE | 2019-12-17 10:16 | PN ---
[facility] Progress Note Note: Patient is scheduled for discharge tomorrow. Scripts for 30 days supply of Remeron 30mg/hs will be electronically transmitted to [facility], [address] [place] [id number]
[2019-12-17] MEDS: PRENATAL VITAMINS W/ FOLIC ACID TABLET (FP) PO SCH (10:45)
[2019-12-17] MEDS: CARBAMIDE PEROXIDE 6.5% OTIC 15 ML BOTTLE AU SCH ×2 (10:46→21:20)
[2019-12-17] MEDS: NICOTINE 14 MG/24 HOURS TOPICAL PATCH TD SCH (10:46)
[2019-12-17] MEDS: QUEtiapine FUMARATE 50 MG TABLET PO SCH (21:20)
[2019-12-17] MEDS: SUVOREXANT 15 MG TABLET PO PRN (21:20)
[2019-12-17] MEDS: MIRTAZAPINE 30 MG TABLET (FP) PO SCH (21:20)
[2019-12-17] MEDS: THIAMINE HCL 100 MG TABLET (FP) PO SCH (21:21)
[2019-12-18] MEDS ORDERED: METHADONE HCL 40 MG DISPERSABLE TABLET ONE (05:29)
[2019-12-18] MEDS ORDERED: METHADONE HCL 10 MG TABLET ONE (05:29)
[2019-12-18] MEDS: METHADONE 40 MG, METHADONE 30 MG PO SCH (06:52)
[2019-12-18 07:26] VITALS: BP 135/85; PULSE 69; TEMP 98.2
--- NOTE | 2019-12-18 08:55 | DS ---
[facility] Rehab Discharge Summary - [facility] Rehab Discharge Summary Admission Date: 11/23/19 Discharge Date: 12/18/19 - History Present History: Alcohol dependence, Cocaine dependence, MMTP Additional Comments: Pt is a 54 y/o male with a hx of [place] admitted to rehab and scheduled to discharge today after treatment completion. pt has been referred back to his [facility] MMTP for OTP continuation. Pt will follow up with [facility] aftercare for LT rehab treatment for an opening date of admission. Pt states he prefers to seek primary care with [facility] after discharge. Pertinent Past History: Sleep disorder - Discharge Physical Exam Vital Signs: Vital Signs Temperature 98.2 F 12/18/19 07:25 Pulse Rate 69 12/18/19 07:25 Respiratory Rate 18 12/18/19 07:25 Blood Pressure 135/85 12/18/19 07:25 O2 Sat by Pulse Oximetry (%) 97 12/18/19 07:25 Alert o x 3,denies s/h/i nad oob ambulating with steady gait cardiac:s1 s2,rrr lungs:cta,celso. abdomen;soft,+bs,nt,nd extremities/skin;no edema,skin warm, dry and intact. Pertinent Admission Physical Exam Findings: Unremarkable and medically stable from detox - Treatment Discharge Condition: Discharge condition good Hospital Course: CD aftercare referral accepted Rehabilitated well Participated in groups and individual sessions. - Medication Discharge Medications: Ambulatory Orders Mirtazapine [Remeron -] 30 mg PO HS #30 tablet 12/17/19 Quetiapine Fumarate [Seroquel -] 50 mg PO HS #30 tablet 12/18/19 - Medication-Assisted Treatment (MAT) Medication-Assisted Treatment (MAT): No - Discharge Instructions Diet, activity, other medical instructions: Diet:Regular Activity: oob ad cedric Other medical instructions:follow up with CD aftercare recommendations as scheduled. Follow up with primary care at [facility] within 1-2 weeks after discharge. - Diagnosis (1) Alcohol dependence Status: Chronic Qualifiers: Substance use status: uncomplicated Qualified Code(s): F10.20 - Alcohol dependence, uncomplicated (2) Cocaine dependence Status: Chronic Qualifiers: Substance use status: uncomplicated Qualified Code(s): F14.20 - Cocaine dependence, uncomplicated (3) Methadone maintenance therapy patient Status: Chronic (4) Nicotine dependence Status: Chronic Qualifiers: Nicotine product type: cigarettes Substance use status: uncomplicated Qualified Code(s): F17.210 - Nicotine dependence, cigarettes, uncomplicated - Follow-up Referral Minutes to complete discharge: 30 - AMA Did Patient Leave Against Medical Advice: No
--- NOTE | 2019-12-18 09:23 | PN ---
S Progress Note Note: Psychiatric nurse practitioner note: Patient scheduled for discharged this morning. A 30 day prescription of Seroquel 50mg HS was electronically sent to [facility] [address] [place] [address].
[2019-12-18] MEDS: CARBAMIDE PEROXIDE 6.5% OTIC 15 ML BOTTLE AU SCH (09:34)
[2019-12-18] MEDS: PRENATAL VITAMINS W/ FOLIC ACID TABLET (FP) PO SCH (09:34)
[2019-12-18] MEDS: NICOTINE 14 MG/24 HOURS TOPICAL PATCH TD SCH (09:34)
== END 2019-12-18 09:40 | disposition home or self-care (01) | DRG 772 ==
LOC: YASAS 15:39 → Y5N 15:40
PROVIDERS: ADMIT Allergy & Immunology; ATTEND Allergy & Immunology
PROC: HZ42ZZZ Group Counseling for Substance Abuse Treatment, Cognitive-Behavioral (ICD-10-PCS; principal; 2019-11-23)
DX: F10.20 Alcohol dependence, uncomplicated (principal); F14.20 Cocaine dependence, uncomplicated; F11.20 Opioid dependence, uncomplicated; F17.210 Nicotine dependence, cigarettes, uncomplicated; F19.282 Other psychoactive substance dependence with psychoactive substance-induced sleep disorder; H61.23 Impacted cerumen, bilateral; Z56.0 Unemployment, unspecified; Z59.0 Homelessness